=== PATIENT | male | born 1955 | race Caucasian/White ===

== ENCOUNTER → 2023-06-25 06:22 | Day surgery (SDC) | payer MEDICARE, OTHER, SELFPAY | LOC: GI 06:22 | PROVIDERS: ATTENDING PHYSICIAN Internal Medicine; FAMILY PHYSICIAN Family Medicine | DX: K22.70 Barrett's esophagus without dysplasia (principal); K22.2 Esophageal obstruction; K31.89 Other diseases of stomach and duodenum; K29.70 Gastritis, unspecified, without bleeding | CPT/HCPCS: 43239; 88305 ==

== ENCOUNTER → 2023-08-01 10:08 | Outpatient (REF) | payer MEDICARE, OTHER, SELFPAY | LOC: RAD 10:08 | PROVIDERS: ATTENDING PHYSICIAN Surgery Vascular Surgery; FAMILY PHYSICIAN Family Medicine | DX: I73.9 Peripheral vascular disease, unspecified (principal); I77.1 Stricture of artery | CPT/HCPCS: 93922; 93923; 93925; 93930; 93978 ==

== ENCOUNTER 2023-10-18 06:11 | Day surgery (SDC) | payer MEDICARE, OTHER, SELFPAY ==
[2023-10-18] VITALS (9 sets, daily range): BP systolic 115–133; BP diastolic 59–98; BMI 24.2
== END 2023-10-18 16:13 | disposition home or self-care (01) ==
LOC: SDS 06:11
PROVIDERS: ATTENDING PHYSICIAN Internal Medicine Gastroenterology
DX: Z46.59 Encounter for fitting and adjustment of other gastrointestinal appliance and device (principal); Z97.8 Presence of other specified devices; Z79.01 Long term (current) use of anticoagulants
CPT/HCPCS: 43247

== ENCOUNTER → 2023-11-08 17:30 | Day surgery (SDC) | payer MEDICARE, OTHER, SELFPAY ==
[2023-11-08 14:13] VITALS: BP 135/91
--- NOTE | 2023-11-08 15:28 | ED.GENMED ---
History of Present Illness
General
Chief Complaint: Swallowing Problem
Source: patient
Exam Limitations: none
Time Seen by Provider: 11/08/23 15:08
Nursing documentation reviewed up to this point in time: agreed with
History of Present Illness
History of Present Illness:
The patient is a 68-year-old man with a past medical history of Palacios's esophagus with dysplasia who recently underwent esophageal surgery at [facility] this year. Patient reports that he had a stent postoperatively. The stent was removed
by Dr. Stephens on October 18, 2023. Patient reports that 3 days after the stent was removed, he had great difficulty swallowing liquids and solids. He reports that he has continued to lose weight and is bringing up large amounts of mucus after he eats and
drinks anything. Patient denies pain and bleeding. Patient was told to come to the emergency department for possible EGD.
Past History
Past History
ED Past Medical History: COPD, GERD (Palacios's esophagus), HTN, Hypercholesterolemia and Other (Peripheral vascular disease, lumbar disc disease, fibromyalgia)
ED Past Surgical History: Orthopedic (Lumbar laminectomy, spinal stenosis surgery 08/13/2017.) and Tonsilectomy
Social History
Tobacco: Former smoker (Quit smoking June 2017)
Alcohol: Occasional
Drug: None
Personal:
Living: with family
Employment: Employed
Family History
Family History: Other (Noncontributory)
Review of Systems
Review of Systems
Allergies reviewed?: Yes
All Other Systems: ROS reviewed and negative except as documented in HPI and ROS
Constitutional: Reports weight loss
EENT: Reports other (Large amount of mucus production, difficulty swallowing)
Respiratory: Reports no symptoms
Cardiac: Reports no symptoms
ABD/GI: Reports vomiting
: Reports no symptoms
Musculoskeletal: Reports no symptoms
Skin: Reports no symptoms
Neurological: Reports no symptoms
Endocrine: Reports no symptoms
Hematologic/Lymphatic: Reports no symptoms
Psychiatric: Reports no symptoms
Phy Exam
Physical Exam
Physical Exam:
Physical Exam
General: no apparent distress, not acutely ill. Comfortable appearing. No pooling of saliva
Neck: supple. no meningeal signs. normal psoterior pharynx
Heart: s1/s2 regular rate and rhythm, no murmur. equal radial pulses.
Lungs: no acute respiratory distress. clear bilaterally
Abdomen: normal bowel sounds. not tender. no CVAT
Neuro: alert and oriented. no focal neurological deficits
Skin: no rash
Psychiatric: well kept. interactive and cooperative
Extremities: no edema. no calf tenderness. negative homans. good distal pulses
Course
Orders/Labs/Results
Orders:
Orders
11/08/23 15:26
0.9% Sodium Chloride 1000 ml [Nss] 1,000 ml IV BOLUS
11/08/23 15:36
Basic Metabolic Panel Urgent
Complete Blood Count/With Diff Urgent
11/08/23 15:56
Consult Gastroenterology [GASTROINTESTINAL CONSULT] Urgent
Consulting Provider: Saud Jauregui
Was physician already notified: Yes
Reason for consult: difficulty swallowing
11/08/23 17:25
Glycopyrrolate [Robinul] 0.2 mg .ROUTE .STK-MED ONE
Lidocaine HCl/Epinephrine Mpf [Xylocaine Mpf 2% with Epinephrine] 2 % .ROUTE .STK-MED ONE
Propofol [Diprivan] 40 ml .ROUTE .STK-MED
Abnormal Lab Results
11/08/23
15:36
RBC 4.17 L 10^6/uL
(4.70-6.10)
Hct 37.5 L %
(39.0-52.0)
MCH 32.9 H pg
(27.0-31.0)
Monocytes % 10.7 H %
(1.7-9.3)
Sodium 131 L mmol/L
(135-145)
Chloride 97 L mmol/L
(98-107)
BUN 25 H mg/dl
(9-20)
Glucose 100 H mg/dl
(70-99)
11/08/23 15:36
11/08/23 15:36
Vital Signs
Initial and Last Documented VS:
Initial Vital Signs
Temp Pulse Resp BP Pulse Ox
98.6 F 86 18 135/91 97
11/08/23 14:13 11/08/23 14:13 11/08/23 14:13 11/08/23 14:13 11/08/23 14:13
Last Documented Vital Signs
Temp Pulse Resp BP Pulse Ox
98.6 F 86 18 135/91 97
11/08/23 14:13 11/08/23 14:13 11/08/23 14:13 11/08/23 14:13 11/08/23 14:13
MDM/Problems Addressed
Differential Diagnosis Includes:
Esophageal obstruction, gastric outlet syndrome, small bowel obstruction
MDM/Problems Addressed:
Patient presents with acute on chronic difficulty swallowing
Chronic conditions affecting care:
Palacios's esophagus
Acute Exacerbation and/or Progression of Chronic Illness:
Patient's symptoms likely represent acute exacerbation of chronic difficulty swallowing due to Palacios's esophagus and esophageal surgery
*Critical Care Note
Total Time (30-74mins, 75-104mins- exclusive of procedures): Not Applicable
Data Reviewed
Review of Other/Old Records Reveals: Operative Reports (Dr. Stephens's operative procedure reviewed when he remove stent on October 18, 2023)
Source: patient and spouse
Patient Management
Discussion with other providers: Other (Dr. Saud Jauregui came to evaluate patient and is taking him to the GI lab.)
Update Note
Update Note:
4:[address] Jauregui is taking patient to the GI lab for an EGD.
ED Attending Note
-
Portions of this chart may have been created with voice recognition software.� Occasional wrong word or��sound alike� substitutions may have occurred due to the inherent limitations of voice recognition software.
Discharge Plan
Departure
Patient Disposition: GI LAB
Date of Disposition: 11/08/23
Time of Disposition: 16:13
Admit to: GI lab
Presentation/result/management discussed w/ accepting MD/DO: Saud Jauregui
Patient with high blood pressure during this ER visit?: Yes
Condition: Good
Covid-19: Not Applicable
Discharge Problem:
acute on chronic dysphagia
Interventions
Interventions:
*Risk Screen - Suicide Last Done: 11/08/23 15:29
*General Assessment Last Done: 11/08/23 14:13
*Neglect/Abuse Screening Last Done: 11/08/23 15:29
ED- Fall Risk Assessment Last Done: 11/08/23 15:29
*ED COVID-19 Vaccine History Last Done: 11/08/23 14:13
*Nursing Disposition Last Done: 11/08/23 17:24
ED-EENT Assessment Last Done: 11/08/23 15:29
SJ-Esvbag-Pnhjcgrhvm Assessment Last Done: 11/08/23 15:29
ED- Pulmonary Assessment Last Done: 11/08/23 15:29
ED- Neurological Assessment Last Done: 11/08/23 15:29
Discharge Date and Time
Discharge Date/Time: 11/08/23 17:25
[2023-11-08 15:29] VITALS: BMI 22.6
[2023-11-08] MEDS: NSS 1000 IV (15:32)
--- NOTE | 2023-11-08 15:33 | CON.GI ---
Addendum entered and electronically signed by Saud Jauregui MD 11/08/23 16:57:
I saw and examined the patient.
The BACTERIOLOGY TEACHER or PA's note was reviewed and I agree with the note.
Comment: 68yo male presents with dysphagia. He has hx long standing Sifuentes's and on surveillance EGD in June found to have HGD, LGD, and possible intramucosal CA. Referred for ESD at [facility] which was performed in August with negative
margins, path showing HGD, LGD. Esophageal stent was placed due to perforation during procedure. He had stent removal 10/17 and was able to eat OK following procedure. Two days later he ate cheesesteak and had aspiration, regurgitation. Since
then he has intermittently had difficulty eating or even swallowing water, but other times able to eat full breakfast sandwich this AM. He is on xarelto for PVD
REC:
Unclear if he has esophageal obstruction. He drank water in ER but then regurgitated up phlegm and water 1 minute later
Will proceed with EGD (diagnostic only on xarelto) to exclude food impaction
He may have esophageal stricture. If he needs dilation, will reschedule after xarelto washout (can be done OP)
If no obstruction, can d/c on soft diet and continue PPI/carafate
Original Note:
Consultation
-
Date/Time Consultation Requested: 11/08/231529
Date/Time Consultation Performed: 11/08/231529
Requesting Provider: Maisha Lugo MD
Performing Provider: WESLEY Ayala, Saud Jauregui MD
Reason for Consultation: difficulty swallowing
Medical History
Chief Complaint / HPI
Chief Complaint: inability to eat
History of Present Illness:
Pt is a 68yo with hx GERD, colon polyps, sifuentes's, PVD, DDD, fibromyalgia with EGD 06/2023 with change of short segment sifuentes's with EGD 06/[address] Stapleton --benign appearing stenosis and gastritis pathology GE junction with low grade
dysplasia, and high grade dysplasia with rare single and small dysplastic cell suspicious for intramucosal adenocarcinoma in background of sifuentes's. Pt went to Dr. Watt with [facility] for repeat EGD in July with ESD resection and perforation
requiring stenting (report not reviewed) with path high grade dysplasia in background of sifuentes's mucosa and esophageal and gastric margins free of dysplasia. Pt went 10/17 for stent removal with Dr. Stephens-- sent found middle and lower third of
esophagus with multiple endosutures found and cut. stent removed with raptor device no lesions in esophagus. Pt states he was well for a few dayt then went out to eat for cheesesteak. He has feeling of food hitting stomach with regurgitation of
mostly mucous. Since that time he has had episodes of normal eating and other episode of regurgitation of mostly phlegm about 1-2 minutes after eating. Symptoms were severe a few days ago with dark urine without eating with worsening symptoms over
time. He has been on Lansoprazole and added Carafate after symptoms without improvement.
He denies odynophagia, abdominal pain, change in bowel habits or bleeding. 30 lbs wt loss since July. PET neg 07/2023.
Past Medical History
Past Medical History: GERD, HTN and Other (PVD, sifuentes's, colon polyps, DDD, fibromyalgia)
Past Surgical History: Tonsilectomy and Other (lumbar lami, spinal stenosis)
Social History
Tobacco: Former Smoker
Alcohol: Occasional
Drug: None
Personal:
Living: With Family
Employment: Retired
Family History
Family History: Other (grandfather with bleeding ulcer )
Allergies / Home Medications
Allergy/AdvReac Type Severity Reaction Status Date / Time
oxycodone [From OxyContin] Allergy Severe Hives Verified 11/08/23 14:23
almond Allergy Pt denies Verified 11/08/23 14:23
banana Allergy Pt denies Verified 11/08/23 14:23
barley Allergy Pt denies Verified 11/08/23 14:23
candesartan [From Atacand] Allergy Anaphylaxis Verified 11/08/23 14:23
hydromorphone Allergy HALLUCINATI Verified 11/08/23 14:23
ONS
metoprolol Allergy Anaphylaxis Verified 11/08/23 14:23
rabeprazole [From Aciphex] Allergy Anaphylaxis Verified 11/08/23 14:23
valsartan [From Diovan] Allergy Anaphylaxis Verified 11/08/23 14:23
H1N1 vaccine Allergy Anaphylaxis Uncoded 11/08/23 14:23
�Medication �Instructions �Recorded
clonidine HCl 0.1 mg tablet 0.1 mg PO DAILY 08/09/17
zinc 10 mg tablet 10 mg PO DAILY ##0 08/09/17
acetaminophen 500 mg tablet 1,000 mg PO BID 11/05/17
(Tylenol Extra Strength)
hydrochlorothiazide 12.5 mg tablet 12.5 mg PO DAILY 11/05/17
lansoprazole 15 mg capsule,delayed 15 mg PO DAILY 11/05/17
release
multivitamin with folic acid 400 1 tab PO DAILY 11/05/17
mcg tablet (Tab-A-Trung)
red yeast rice 600 mg tablet 600 mg PO DAILY ##0 11/05/17
Lactobacillus acidophilus and 1 tab PO DAILY 12/06/20
rhamnosus 15 billion cell capsule
(Probiotic)
docosahexaenoic acid (dha)-epa 120 1 cap PO DAILY 12/06/20
mg-180 mg capsule
rivaroxaban 15 mg tablet (Xarelto) 15 mg PO DAILY 12/06/20
Review of Systems
-
History Source: Patient and Family
Constitutional: Reports Weight Loss
EENT: Reports No Symptoms
Respiratory: Reports No Symptoms
Cardiac: Reports No Symptoms
Abdomen/GI: Reports Nausea and Vomiting (after eating with regurgitation of phlem)
: Reports Dark Urine (several days ago with inability to eat )
Musculoskeletal: Reports No Symptoms
Skin: Reports No Symptoms
Neurological: Reports Weakness
Endocrine: Reports No Symptoms
Hematologic/Lymphatic: Reports No Symptoms
Vital Signs
Temp Pulse Resp BP Pulse Ox
98.6 F 86 18 135/91 97
11/08/23 14:13 11/08/23 14:13 11/08/23 14:13 11/08/23 14:13 11/08/23 14:13
Physical Exam
Exam
General: Well Nourished and Other (thin appearing)
HEENT: Normocephalic and Anicteric
Respiratory: Clear
Cardiac: Regular Rhythm
GI: Soft, Non Tender and Non Distended
Musculoskeletal: No Clubbing and No Cyanosis
Skin: Warm and Dry
Neuro: Awake, Alert and AO x 3
Psych: Calm
Results
Diagnostic Image Results:
07/2023 PET scan
No suspicious FDG avid lesion.
Chronic degenerative changes of the spine. Previous lumbar laminectomies.
Prior GI Procedures:
EGD 06/[address] Stapleton --benign appearing stenosis and gastritis pathology GE junction with low grade dysplasia, and high grade dysplasia with rare single and small dysplastic cell suspicious for intramucosal adenocarcinoma in background of
sifuentes's.
07/2023 Dr. Watt with [facility] for repeat EGD in July with ESD resection and perforation requiring stenting (report not reviewed) with path high grade dysplasia in background of sifuentes's mucosa and esophageal and gastric margins free of dysplasia
EGD: Dr. Stephens 10/18/23
- Pre-existing esophageal stent secured with
endoscopically placed sutures, removed.
- No gross lesions in the entire stomach.
- Normal duodenal bulb, first portion of the duodenum
and second portion of the duodenum
Assessment / Plan
-
Pt is a 68yo with hx GERD, colon polyps, sifuentes's, PVD, DDD, fibromyalgia with EGD 06/2023 with change of short segment sifuentes's with EGD 06/[address] Stapleton --benign appearing stenosis and gastritis pathology GE junction with low grade
dysplasia, and high grade dysplasia with rare single and small dysplastic cell suspicious for intramucosal adenocarcinoma in background of sifuentes's. Pt went to Dr. Watt with [facility] for repeat EGD in July with ESD resection and perforation
requiring stenting (report not reviewed) with path high grade dysplasia in background of sifuentes's mucosa and esophageal and gastric margins free of dysplasia. Pt went 10/17 for stent removal with Dr. Stephens-- sent found middle and lower third of
esophagus with multiple endosutures found and cut. stent removed with raptor device no lesions in esophagus. Pt states he was well for a few dayt then went out to eat for cheesesteak. He has feeling of food hitting stomach with regurgitation of
mostly mucous. Since that time he has had episodes of normal eating and other episode of regurgitation of mostly phlegm about 1-2 minutes after eating. Symptoms were severe a few days ago with dark urine without eating with worsening symptoms over
time. He has been on Lansoprazole and added carafate after symptoms without improvement. PET neg 07/2023.
-dysphagia with regurgitation of phlegm after eating and drinking
-hx sifuentes's with EGD 06/2023 high grade dysplasia/intramucosal adeno Ca with ESD 07/[address] Watt with perforation and stent placement
-10/18/23 endostent removal
-hx GERD
-hyponatremia
-wt loss
other medical problems:
-colon polyps
-PVD
-fibromyalgia
PLAN:
etiology of dysphagia related to retained food impaction, stricture, spasms vs other
unable to tolerate liquids in ER
cont IVF
cont NPO
plan for EGD today to rule out food impaction vs other today
Last Xarelto this am
family updated at bedside
-
-
Thank you for consultation and allowing me to participate in the patient's care. Please call the psychological operations specialist GI physician during the after hours with any questions or concerns.
[2023-11-08 15:50] LABS: % Basophils 1.4 % (0-2); % Eosinophils 2.6 % (0-6); % Immature Granulocytes 0.4 % (0-0.5); % Lymphocytes 37.8 % (20.5-51.1); % Monocytes 10.7 % (1.7-9.3); % Neutrophils 47.1 % (42.2-75.2); Absolute Basophils 0.1 10^3/uL (0-0.2); Absolute Eosinophils 0.2 10^3/uL (0-0.7); Absolute Lymphocytes 2.2 10^3/uL (1.2-3.4); Absolute Monocytes 0.6 10^3/uL (0.1-0.6); Absolute Neutrophils 2.7 10^3/uL (1.4-6.5); Hematocrit 37.5 % (39.0-52.0); Hemoglobin 13.7 g/dL (13.0-18.0); Mean Corp Hgb Conc. 36.5 g/dL (33.0-37.0); Mean Corpuscular Hgb 32.9 pg (27.0-31.0); Mean Corpuscular Volume 89.9 fL (80.0-94.0); Mean Platelet Volume 9.6 fL (7.4-10.4); Nucleated Red Blood Cells % 0 % (-); Platelet Count 224 10^3/uL (130-400); Red Blood Cell Count 4.17 10^6/uL (4.70-6.10); Red Cell Dist. Width 12.9 % (11.5-14.5); White Blood Cell Count 5.7 10^3/uL (4.8-10.8)
[2023-11-08 16:10] LABS: Blood Urea Nitrogen 25 mg/dl (9-20); Calcium 9.6 mg/dl (8.4-10.2); Carbon Dioxide 24 mmol/L (22-30); Chloride 97 mmol/L (98-107); Estimated Creatinine Clearance 72 ml/min; Glucose 100 mg/dl (70-99); Sodium 131 mmol/L (135-145); eGFR > 60.00
== END ==
LOC: EMR 14:09 → GI 17:30
PROVIDERS: ATTENDING PHYSICIAN Emergency Medicine; CONSULT PHYSICIAN Specialist; FAMILY PHYSICIAN Family Medicine
DX: R13.10 Dysphagia, unspecified (principal); K22.2 Esophageal obstruction; T18.128A Food in esophagus causing other injury, initial encounter; W44.F3XA Food entering into or through a natural orifice, initial encounter
CPT/HCPCS: 43247; 80048; 85025; 96360; 99284

== ENCOUNTER 2023-11-26 06:33 | Day surgery (SDC) | payer MEDICARE, OTHER, SELFPAY ==
[2023-11-26 13:59] VITALS: BMI 23.7
[2023-11-26 14:00] VITALS: BP 111/67; BMI 23.7
[2023-11-26 16:36] VITALS: BP 104/64
[2023-11-26 16:45] VITALS: BP 112/79
[2023-11-26 16:55] VITALS: BP 119/78
== END 2023-11-26 17:15 | disposition home or self-care (01) ==
LOC: SDS 06:33
PROVIDERS: ATTENDING PHYSICIAN Internal Medicine Gastroenterology
DX: R13.10 Dysphagia, unspecified (principal); K22.2 Esophageal obstruction
CPT/HCPCS: 43249; 43236; C1726

== ENCOUNTER 2023-12-17 06:18 | Day surgery (SDC) | payer MEDICARE, OTHER, SELFPAY ==
[2023-12-17 09:15] VITALS: BP 181/93
[2023-12-17 09:36] VITALS: BMI 24.1
[2023-12-17 09:37] VITALS: BMI 24.1
[2023-12-17 11:23] VITALS: BP 119/66
[2023-12-17 11:30] VITALS: BP 131/87
[2023-12-17 11:49] VITALS: BP 110/82
== END 2023-12-17 12:10 | disposition home or self-care (01) ==
LOC: SDS 06:18
PROVIDERS: ATTENDING PHYSICIAN Internal Medicine Gastroenterology
DX: K22.2 Esophageal obstruction (principal); R13.10 Dysphagia, unspecified; Z85.01 Personal history of malignant neoplasm of esophagus; Z79.01 Long term (current) use of anticoagulants
CPT/HCPCS: 43249; 43236; C1726

== ENCOUNTER 2024-01-03 06:24 | Day surgery (SDC) | payer MEDICARE, OTHER, SELFPAY ==
[2024-01-03 07:24] VITALS: BP 132/92
[2024-01-03 07:35] VITALS: BMI 22.9
[2024-01-03 08:36] VITALS: BP 131/97
[2024-01-03 08:38] VITALS: BP 109/67
[2024-01-03 08:45] VITALS: BP 108/74
[2024-01-03 09:00] VITALS: BP 126/82
[2024-01-03 09:15] VITALS: BP 126/67
== END 2024-01-03 09:25 | disposition home or self-care (01) ==
LOC: SDS 06:24
PROVIDERS: ATTENDING PHYSICIAN Internal Medicine Gastroenterology
DX: K22.2 Esophageal obstruction (principal); R13.10 Dysphagia, unspecified; Z85.01 Personal history of malignant neoplasm of esophagus
CPT/HCPCS: 43249; 43236; C1726

== ENCOUNTER 2024-02-13 06:16 | Day surgery (SDC) | payer MEDICARE, OTHER, SELFPAY ==
[2024-02-13 10:36] VITALS: BMI 23.7
[2024-02-13 10:37] VITALS: BMI 23.7
[2024-02-13 10:38] VITALS: BP 123/79
[2024-02-13 11:53] VITALS: BP 118/87
[2024-02-13 12:00] VITALS: BP 95/79
[2024-02-13 12:15] VITALS: BP 114/83
== END 2024-02-13 12:27 | disposition home or self-care (01) ==
LOC: SDS 06:16
PROVIDERS: ATTENDING PHYSICIAN Internal Medicine
DX: K22.2 Esophageal obstruction (principal); K20.90 Esophagitis, unspecified without bleeding; K22.10 Ulcer of esophagus without bleeding; Z79.01 Long term (current) use of anticoagulants
CPT/HCPCS: 43235

== ENCOUNTER 2024-03-09 06:31 | Day surgery (SDC) | payer MEDICARE, OTHER, SELFPAY ==
[2024-03-09 11:21] VITALS: BMI 23.8
[2024-03-09 11:32] VITALS: BMI 23.8
[2024-03-09 11:33] VITALS: BP 160/99
[2024-03-09 13:06] VITALS: BP 129/74
== END 2024-03-09 13:37 | disposition home or self-care (01) ==
LOC: SDS 06:31
PROVIDERS: ATTENDING PHYSICIAN Internal Medicine
PROC: 0D758ZZ Dilation of Esophagus, Via Natural or Artificial Opening Endoscopic (ICD-10-PCS; 2024-03-09)
PROC: 3E0G8GC Introduction of Other Therapeutic Substance into Upper GI, Via Natural or Artificial Opening Endoscopic (ICD-10-PCS; 2024-03-09)
DX: K22.2 Esophageal obstruction (principal); K44.9 Diaphragmatic hernia without obstruction or gangrene
CPT/HCPCS: 43249; 43236; C1726

== ENCOUNTER 2024-07-24 06:07 | Day surgery (SDC) | payer MEDICARE, OTHER, SELFPAY ==
[2024-07-24 09:10] VITALS: BMI 24.7
[2024-07-24 09:13] VITALS: BMI 24.7
[2024-07-24 09:14] VITALS: BP 143/97
[2024-07-24 12:17] VITALS: BP 132/89
[2024-07-24 12:30] VITALS: BP 133/84
[2024-07-24 12:45] VITALS: BP 124/74
== END 2024-07-24 13:15 | disposition home or self-care (01) ==
LOC: SDS 06:07
PROVIDERS: ATTENDING PHYSICIAN Internal Medicine
DX: Z12.11 Encounter for screening for malignant neoplasm of colon (principal); K63.89 Other specified diseases of intestine; R13.10 Dysphagia, unspecified; K44.9 Diaphragmatic hernia without obstruction or gangrene; K22.2 Esophageal obstruction; K29.70 Gastritis, unspecified, without bleeding; K22.89 Other specified disease of esophagus
CPT/HCPCS: 43249; 45380; 43239; 88305; 88342

== ENCOUNTER → 2024-08-05 09:39 | Outpatient (REF) | payer MEDICARE, OTHER, SELFPAY | LOC: DHVS 09:39 | PROVIDERS: ATTENDING PHYSICIAN Registered Nurse | DX: I73.9 Peripheral vascular disease, unspecified (principal); I77.1 Stricture of artery; I65.23 Occlusion and stenosis of bilateral carotid arteries | CPT/HCPCS: 93922; 93923; 93925; 93930; 93978 ==

== ENCOUNTER 2025-03-04 12:32 | Outpatient (REF) | payer MEDICARE, OTHER, SELFPAY | END 2025-03-04 23:59 | disposition home or self-care (01) | LOC: WOUND 12:32 | PROVIDERS: ATTENDING PHYSICIAN Surgery; FAMILY PHYSICIAN Family Medicine | DX: I70.262 Atherosclerosis of native arteries of extremities with gangrene, left leg (principal); L97.524 Non-pressure chronic ulcer of other part of left foot with necrosis of bone; I70.0 Atherosclerosis of aorta | CPT/HCPCS: G0463; 99204 ==

== ENCOUNTER 2025-03-04 17:46 | Inpatient (IN) | payer MEDICARE, OTHER, SELFPAY ==
[2025-03-04 13:07] VITALS: BP 152/93
[2025-03-04 14:50] VITALS: BMI 23.9
--- NOTE | 2025-03-04 15:11 | ED.GENMED ---
History of Present Illness
General
Chief Complaint: Skin Problem
Source: patient and spouse
Exam Limitations: none
Time Seen by Provider: 03/04/25 14:59
History of Present Illness
History of Present Illness:
Patient noticed a wound to the left fourth toe which is his lateral toe on his left foot about a week ago. Progressively red swollen. No tenderness. History of peripheral neuropathy. History of peripheral arterial disease. Known history of
stent. No fever chills or systemic symptoms. Sent over by wound care.
Past History
Past History
ED Past Medical History: COPD, GERD (Palacios's esophagus), HTN, Hypercholesterolemia and Other (Peripheral vascular disease, lumbar disc disease, fibromyalgia)
ED Past Surgical History: Orthopedic (Lumbar laminectomy, spinal stenosis surgery 08/13/2017.), Tonsilectomy and Other (Peripheral vascular surgery)
Social History
Tobacco: Former smoker (Quit smoking June 2017)
Alcohol: Occasional
Drug: None
Personal:
Living: with family
Employment: Employed
Family History
Family History: Other (Noncontributory)
Review of Systems
Review of Systems
All Other Systems: Not applicable
Constitutional: Denies fever or chills
Phy Exam
Physical Exam
Physical Exam:
GENERAL: Alert and oriented in no apparent distress
EYE: Orbits normal.
CARDIAC: Regular rate and rhythm without any obvious murmurs.
LUNGS: Clear breath sounds,normal
ABDOMEN: Soft, without focal tenderness or distention
NEUROLOGICAL: Alert and oriented , grossly non-focal
SKIN: Warm and dry. Erythema warmth to the left lateral dorsal foot with an open wound to the left fourth toe. Clear drainage
MUSCULOSKELETAL: Edema to the left foot. Good color to the foot. No ischemic changes. Posterior tibial and dorsalis pedis pulses reasonable with Doppler
PSYCH: Normal and appropriate interaction.
Course
Orders/Labs/Results
Orders:
Orders
03/04/25 15:09
IV Insert/Care/Rem.- Treatment PRN
03/04/25 15:10
Piperacillin/Tazo 4.5 Gram [Zosyn] 4.5 gram in 100 ml IV NOW
Vancomycin [Vancocin] 2,000 mg 0.9% Sodium Chloride 500 ml [Nss] 500 ml IV NOW
Foot, Left 3 View [CR Foot - Left Min 3 Views] Urgent
Comment:
Reason For Exam: Wound/cellulitis fourth toe
03/04/25 15:20
Basic Metabolic Panel Urgent
Complete Blood Count/With Diff Urgent
Serum Osmolality Urgent
Comment: ADD ON
Blood Culture Q30M
LEXY Source: Blood/Venous
Specimen Description:
Blood Culture Q30M
LEXY Source: Blood/Venous
Specimen Description:
03/04/25 16:27
Add On- LAB Urgent
Tests Added?: serum osmo
Osmolality, Random Urine Urgent
Date Specimen was Collected: 03/04/25
Time Specimen was Collected: 17:15
Urine Sodium Urgent
Date Specimen was Collected: 03/04/25
Time Specimen was Collected: 17:15
03/04/25 17:14
Admit/Transfer Patient As Directed
Co-Sign Provider:
Level of Care: Inpatient admission
Assign to:: Medical/Surgical
Physician / Group: Marti Serrano
Diagnosis: Cellulitis left foot, PVD, osteomyelitis, hyponatremia
Reason for Hospitalization: Cellulitis left foot, PVD, osteomyelitis, hyponatremia
Expected length of stay greater than two midnights?: Yes
ELOS- Estimated Length of Stay in days: 3
I certify the patient meets the requirements for IP care: Yes
PRN Pain Medication Management As Directed
May give lesser potent ordered pain med per pt: Yes
preference::
Protocol:: Medication orders for pain may be administered in a
manner that supports deferring to patient preference
when the pt is:
- Requesting an ordered lesser potent pain medication.
Least to most potent pain medications are defined
as: acetaminophen < NSAID < tramadol < opioids
(morphine, oxycodone, hydromorphone).
- Requesting a lesser dose of the same medication IF
ORDERED.
- Requesting a less intrusive route of administration
if both routes are prescribed by the provider (PO <
IV).
03/04/25 17:17
Code Status As Directed
Resuscitation Status: Full Code
Abnormal Lab Results
03/04/25
15:20
RBC 3.65 L 10^6/uL
(4.70-6.10)
Hgb 11.4 L g/dL
(13.0-18.0)
Hct 32.8 L %
(39.0-52.0)
MCH 31.2 H pg
(27.0-31.0)
Absolute Monos (auto) 1.4 H 10^3/uL
(0.1-0.6)
Lymphocytes % 19.0 L %
(20.5-51.1)
Monocytes % 15.6 H %
(1.7-9.3)
Sodium 124 L mmol/L
(135-145)
Chloride 92 L mmol/L
(98-107)
Serum Osmolality 259 L mOsm/kg
(275-300)
03/04/25 15:20
03/04/25 15:20
Vital Signs
Initial and Last Documented VS:
Initial Vital Signs
Temp Pulse Resp BP Pulse Ox
98.4 F 77 16 152/93 98
03/04/25 13:07 03/04/25 13:07 03/04/25 13:07 03/04/25 13:07 03/04/25 13:07
Last Documented Vital Signs
Temp Pulse Resp BP Pulse Ox
98.4 F 69 18 123/90 99
03/04/25 13:07 03/04/25 18:40 03/04/25 18:40 03/04/25 18:40 03/04/25 18:40
MDM/Problems Addressed
Differential Diagnosis Includes:
Cellulitis left lateral foot. History of peripheral arterial disease. Warrants admission IV antibiotics. Clinically not septic. Will check a foot x-ray doubt osteomyelitis. Cover for MRSA MSSA and gram-negative's.
*Pulse Oximetry
SaO2: 98
Oxygen Mode of Delivery: Room air
Patient hypoxic: no (98)
*Critical Care Note
Total Time (30-74mins, 75-104mins- exclusive of procedures): Not Applicable
Data Reviewed
Review of Other/Old Records Reveals: Labs, Records and Testing
Update Note
Update Note:
Admitted for wound/cellulitis/chronic osteomyelitis/hyponatremia.
ED Attending Note
-
Portions of this chart may have been created with voice recognition software.� Occasional wrong word or��sound alike� substitutions may have occurred due to the inherent limitations of voice recognition software.
Discharge Plan
Departure
Patient Disposition: Admit
Date of Disposition: 03/04/25
Time of Disposition: 15:59
Presentation/result/management discussed w/ accepting MD/DO: Hospitalist
Discharge Problem:
Cellulitis left foot, Open wound left fourth toe, Possible chronic osteomyelitis left four, Hyponatremia, History of peripheral arterial disease
Interventions
Interventions:
*Risk Screen - Suicide Last Done: 03/04/25 13:07
*General Assessment Last Done: 03/04/25 13:07
*Neglect/Abuse Screening Last Done: 03/04/25 15:08
*ED- Fall Risk Assessment Last Done: 03/04/25 13:07
*ED COVID-19 Vaccine History Last Done: 03/04/25 13:07
*ED Influenza Vaccine History Last Done: 03/04/25 13:07
ED-Skin Assessment Last Done: 03/04/25 14:50
[2025-03-04] MEDS: ZOSYN 100 IV ×2 (15:38→21:35)
[2025-03-04 15:41] LABS: Hematocrit 32.8 % (39.0-52.0); Hemoglobin 11.4 g/dL (13.0-18.0); Mean Corp Hgb Conc. 34.8 g/dL (33.0-37.0); Mean Corpuscular Volume 89.9 fL (80.0-94.0); Nucleated Red Blood Cells % 0 % (-); Platelet Count 310 10^3/uL (130-400); Red Cell Dist. Width 13.3 % (11.5-14.5)
[2025-03-04 15:54] LABS: Blood Urea Nitrogen 9 mg/dl (9-20); Calcium 9.2 mg/dl (8.4-10.2); Carbon Dioxide 22 mmol/L (22-30); Chloride 92 mmol/L (98-107); Estimated Creatinine Clearance 105 ml/min; Glucose 98 mg/dl (70-99); Potassium 4.3 mmol/L (3.5-5.1); Sodium 124 mmol/L (135-145); eGFR > 60.00
--- NOTE | 2025-03-04 16:13 | HPS.HSE ---
Addendum entered and electronically signed by Marti Serrano MD 03/04/25 17:52:
This is an addendum to the H&P written by Tierra Belle on 03/04/2025. �Patient seen and examined independently with [employer].
69-year-old male past medical history of hypertension, hyperlipidemia, peripheral arterial disease status post bilateral bypass on Xarelto, amputation of left fifth toe, COPD, GERD, presenting after he rubbed his left toe on sneakers after working
last week. �Noticed redness and edema 5 days ago and progressively worsening. �Sent in by wound care.
Drinks 4-6 beers a day.
Vital signs unremarkable.
Labs show sodium of 124.
Foot x-ray shows no acute fracture or dislocation. �Transmetatarsal amputation of the fifth digit of the remonstrated with intact resection margins. �There is chronic appearing erosion along the lateral aspect of the fourth digit middle phalanx new
from 2018 and suggestive of chronic osteomyelitis.
Patient with infected wound of left fourth toe with surrounding cellulitis and concern for underlying chronic osteomyelitis. Possibly related to PAD. Vancomycin/Zosyn, podiatry consulted. �Hold Xarelto. Vascular consulted.�
Hyponatremia secondary to significant alcohol use. �Alcohol withdrawal protocol.
Original Note:
Family Physician
-
Family Physician: NOT KNOW UNKNOWN - PT DOES
Chief Complaint
-
left 4th toe wound
History of Present Illness
Patient is a 69-year-old male with past medical history significant for hypertension, hyperlipidemia, peripheral vascular disease, COPD and GERD who presented to [facility] ED for evaluation of left 4th toe wound. Patient reports that last Saturday
02/26/2025 he rubbed left 4th digit raw while working with sneakers on. He noticed that area was reddened with mild edema and small opening on Saturday night. Area has progressively gotten worse since then, he called made appointment with
Jazmyn who directed him to ED for evaluation and treatment after seeing him this afternoon. He does report some increased chills over the past 2 days. Denies any fever, cough, shortness of breath, chest pain, nausea, vomiting or diarrhea.
Medical History
Past Medical History
Past Medical History: Reports Other
Additional Past Medical History:
hypertension
hyperlipidemia
peripheral vascular disease
COPD
GERD
Past Surgical History: Reports Other
Additional Past Surgical History:
Lumbar decompressive laminectomy L2, L3, L4, L5, S1 (Dr. Stephens) 08/13/2017
bilat fem endart,aorto bifem bypass,bilateral fm to bk pop artery with graft (Dr. Alvarenga) 10/07/2017
left fifth toe open ray amputation (Dr. Hinton) 11/07/2017
Open left inguinal hernia repair with mesh (Dr. Brady) 12/21/2020
Stent removed 09/2023
Social History
Tobacco: Vaping (daily 5% nicotine, former cigarette smoke quit 2017)
Alcohol: Daily (4-6 beers daily and 1 glass of wine )
Drug: None
Personal:
Living: With Family
Family History
Family History: Not pertinent
Allergies / Home Medications
Allergies reflects when Allergies were last updated in [facility].
Home Medications with original date entered in [facility]
Allergy/Medication List:
Allergies
Allergy/AdvReac Type Severity Reaction Status Date / Time
candesartan (From Atacand) Allergy Anaphylaxis Verified 03/04/25 13:10
hydromorphone Allergy HALLUCINATI Verified 03/04/25 13:10
ONS
metoprolol Allergy Anaphylaxis Verified 03/04/25 13:10
rabeprazole (From Aciphex) Allergy Anaphylaxis Verified 03/04/25 13:10
valsartan (From Diovan) Allergy Anaphylaxis Verified 03/04/25 13:10
H1N1 vaccine Allergy Anaphylaxis Uncoded 03/04/25 13:10
Home Medications
clonidine HCl 0.1 mg tablet 0.1 mg PO BID 08/09/17
lansoprazole 15 mg capsule,delayed release 15 mg PO DAILY 11/05/17
red yeast rice 600 mg tablet 600 mg PO DAILY ##0 11/05/17
Lactobacillus acidophilus and rhamnosus 15 billion cell capsule (Probiotic) 1 tab PO DAILY 12/06/20
rivaroxaban 15 mg tablet (Xarelto) 15 mg PO DAILY 12/06/20
ascorbic acid (vitamin C) 1,000 mg tablet (Vitamin C) 1,000 mg PO DAILY 03/09/24
acetaminophen 650 mg tablet,extended release 1,300 mg PO BID 03/04/25
hydrochlorothiazide 25 mg tablet 25 mg PO DAILY 03/04/25
pyridoxine (vitamin B6) 100 mg tablet (Vitamin B-6) 100 mg PO DAILY 03/04/25
vitamin E 268 mg (400 unit) capsule 268 mg PO DAILY 03/04/25
zinc acetate 25 mg (zinc) capsule 25 mg PO DAILY 03/04/25
Review of Systems
-
History Source: Patient
Constitutional: Reports Chills; Denies Fever
EENT: Denies Sore Throat
Respiratory: Denies Cough, Hemoptysis or Trouble Breathing
Cardiac: Denies Chest Pain, Diaphoresis, Palpitations or Syncope
Abdomen/GI: Denies Abdominal Pain, Nausea, Vomiting or Diarrhea
: Denies Dysuria, Frequency or Urgency
Musculoskeletal: Denies Joint Pain
Skin: Reports Other (open wound to left fourth toe wound ); Denies Rash
Neurological: Denies Dizzy
Physical Exam
Vital Signs
Vital Signs
Temp Pulse Resp BP Pulse Ox
98.4 F 77 16 152/93 98
03/04/25 13:07 03/04/25 13:07 03/04/25 13:07 03/04/25 13:07 03/04/25 15:14
Physical Exam
General: Well Developed, Well Nourished, No Apparent Distress, Comfortable and Conversant
HEENT: NormoCephalic, Moist mucous membranes, Nose Appears Normal and Ears Appear Normal
Respiratory: Clear and Non Labored Respirations; No Wheezes, Rales, Rhonchi or Crackles
Cardiac: S1/S2 and Regular Rhythm; No Murmur, Rub or Gallop
GI: Soft, Non Tender, Non Distended and Normal Bowel Sounds
Musculoskeletal: No Clubbing, No Cyanosis and No Edema
Skin: IV/Catheter Site and Other (left 4th toe wound with surrounding erythema and edema )
Neuro: Awake and AO x 3
Hematologic/Lymphatic: No Lymphadenopathy
Psych: Calm and Intact Judgment/Insight
Laboratory Results
-
03/04/25 15:20
03/04/25 15:20
Data Reviewed
-
Diagnostic Radiology: Report Reviewed by me (Lt Foot: No acute fracture or dislocation. Transmetatarsal amputation of the fifth digit redemonstrated with intact resection margins. There is a chronic appearing erosion along the lateral aspect of the
fourth digit middle phalanx, new from 2018 and suggestive of chronic osteomyelitis with acute co)
Lab Data: Labs Reviewed by me (hgb 11.4, hct 32.8, Na 124)
Impression/Plan
-
IMPRESSION/PLAN:
#left 4th toe wound with erythema and edema
#cellulitis
hgb 11.4, hct 32.8
Left foot: No acute fracture or dislocation. Transmetatarsal amputation of the fifth digit redemonstrated with intact resection margins. There is a chronic appearing erosion along the lateral
aspect of the fourth digit middle phalanx, new from 2018 and suggestive of chronic osteomyelitis with acute component not excluded radiographically.
Scattered mild to moderate osteoarthritic changes of the interphalangeal and first metatarsophalangeal joints. Mild plantar calcaneal enthesopathy. Tiny curvilinear radiopaque foreign
body projects along the plantar medial aspect of the great toe distally.
Blood Cx: pending
- Admit to med/surg
- IV Vanco and Zosyn
- Consult podiatry
- Consult Vascular
- supportive care
#hyponatremia
#alcohol dependency
Na 124
daily beer drinker 4-6 beers a day
- monitor BMP
- MSAS protocol
#peripheral vascular disease
- Hold Xarelto
#hypertension
- continue clonidine and HCTZ
#GERD
- continue lansoprazole
#hyperlipidemia
#COPD
Code status: full code
DVT prophylaxis: SCDs
[2025-03-04] MEDS: VANCOCIN 540 MG IV (17:15)
[2025-03-04 17:33] VITALS: BP 151/78
[2025-03-04 18:40] VITALS: BP 123/90
[2025-03-04 20:14] VITALS: BP 153/77; BMI 23.4
[2025-03-04] MEDS: THIAMINE INJECTION 200 MG IV (21:29)
[2025-03-04] MEDS: CATAPRES 0.1 MG PO (21:35)
--- NOTE | 2025-03-04 21:43 | PHA.VAN.IN ---
Assessment
- Assessment
Renal Function: Appears similar to baseline
AUC Dosing Plan
- Empiric Dosing
Initial / Loading Dose: 2000 mg @ 1715
Maintenance Regimen: 1000 mg IV Q12H
Estimated AUC (mcg*h/mL): 428
Estimated Peak (mcg*h/mL): 28.1
Estimated Trough (mcg/ml): 10.3
Estimated Half Life (H): 7.6
- Monitoring
No levels ordered at this time: level to be ordered upon follow-up
Pharmacokinetics Vancomycin I
- -
Patient Age: 69
Patient Sex: Male
Vancomycin Day #: 1
Indication: Skin And Soft Tissue
Requesting Provider: Anabella OLSON
Height / Weight:
Height 5 ft 11 in
Actual Weight 76.204 kg
- Vital Signs / Lab Results
Temp Pulse Resp BP Pulse Ox
97.8 F 78 16 127/82 98
03/04/25 20:14 03/04/25 21:35 03/04/25 20:14 03/04/25 21:35 03/04/25 20:14
Lab Results - Hematology
03/04/25
15:20
WBC 8.9
Lab Results - Chemistry
03/04/25
15:20
BUN 9
Creatinine 0.7
Estimated Creat Clear 105
[2025-03-04] MEDS: TYLENOL 650 MG PO (22:06)
[2025-03-04 22:27] LABS: INR 1.45; PT 18.2 Sec (11.4-14.6)
[2025-03-04 22:28] LABS: APTT 51.7 Sec (23.4-35.0)
[2025-03-04 22:39] LABS: GGTP 38 U/L (15-73); Magnesium 1.8 mg/dl (1.6-2.3)
[2025-03-04 23:00] VITALS: BP 137/69
[2025-03-05] MEDS: ZOSYN 100 IV ×4 (04:59→23:04)
[2025-03-05] MEDS: VANCOCIN 200 IV ×2 (06:04→18:32)
[2025-03-05 06:57] LABS: Hematocrit 33.2 % (39.0-52.0); Hemoglobin 11.1 g/dL (13.0-18.0); Mean Corp Hgb Conc. 33.4 g/dL (33.0-37.0); Mean Corpuscular Volume 92.5 fL (80.0-94.0); Platelet Count 295 10^3/uL (130-400); Red Cell Dist. Width 13.6 % (11.5-14.5)
[2025-03-05 07:11] LABS: Blood Urea Nitrogen 7 mg/dl (9-20); Calcium 9.1 mg/dl (8.4-10.2); Carbon Dioxide 25 mmol/L (22-30); Chloride 96 mmol/L (98-107); Estimated Creatinine Clearance 81 ml/min; Glucose 102 mg/dl (70-99); Potassium 4.2 mmol/L (3.5-5.1); Sodium 129 mmol/L (135-145); eGFR > 60.00
[2025-03-05 07:34] VITALS: BP 141/65
[2025-03-05] MEDS: FOLVITE 1 MG PO (08:38)
[2025-03-05] MEDS: THIAMINE INJECTION 200 MG IV ×2 (08:38→21:02)
[2025-03-05] MEDS: CATAPRES 0.1 MG PO ×2 (08:38→21:02)
--- NOTE | 2025-03-05 08:40 | PHA.VAN.FU ---
Vancomycin Assessment / Plan
- Assessment
Renal Function: Stable
WBC's are: WNL
In the past 24 hrs, patient has been: Afebrile
Concomitant Antimicrobials: piperacillin/tazobactam
- Dosing Plan
Continue: Vanc 1000mg Q12H
- Monitoring Plan
No level(s) ordered at this time: consider levels in next few days
- Follow Up
Pharmacy will continue to follow.
Vancomycin Follow UP
- -
Patient Age: 69
Patient Sex: Male
Vancomycin Day #: 2
Indication: Skin And Soft Tissue
Requesting Provider: Anabella OLSON
Pertinent Antimicrobial Allergies:
consider levels in next few days
Height / Weight:
Height 5 ft 11 in
Actual Weight 76.204 kg
- Vital Signs / Lab Results
Temp Pulse Resp BP Pulse Ox
98.7 F 61 17 141/65 97
03/05/25 07:34 03/05/25 07:34 03/05/25 07:34 03/05/25 07:34 03/05/25 07:34
Lab Results - Hematology
03/04/25 03/05/25
15:20 06:36
WBC 8.9 6.0
Lab Results - Chemistry
03/04/25 03/05/25
15:20 06:36
BUN 9 7 L
Creatinine 0.7 0.9
Estimated Creat Clear 105 81
[2025-03-05] MEDS: PROTONIX 20 MG PO (08:49)
[2025-03-05] MEDS: D5W 1000 IV (08:51)
--- NOTE | 2025-03-05 09:07 | CON.VAS ---
Addendum entered and electronically signed by Liang Shin III, MD 03/05/25 13:48:
This patient was seen and examined in collaboration with WESLEY Zhu. I agree with the history and physical exam as well as the assessment and plan. I have the following additions:
Well-known to Dr. Hinton
Prior aortobifemoral bypass with bilateral femoropopliteal bypasses
Admitted with left toe wound and associated infection
On physical examination he has a palpable DP pulse of the left foot
His foot is warm
I personally reviewed his vascular lab studies which reveal a normal NIK and TBI on the left and multiphasic continuous Doppler waveforms in the dorsalis pedis artery and posterior tibial artery.
I personally reviewed the CT angiogram which reveals widely patent aortobifemoral bypass along with patent bilateral lower extremity bypasses. Tibial runoff is patent.
Based on the results of his imaging along with his physical exam findings he is cleared for podiatric surgical intervention on his toe.
Call with additional questions or concerns.
Signed:
Liang Shin III, MD
Vascular Surgery
[facility]
Original Note:
Consultation
Consultation Request
Date/Time Consultation Performed: 03/05/25 8:30am
Performing Provider: Aleida
Reason for Consultation: Nonhealing toe wound/cellulitis
Medical History
-
Chief Complaint: Nonhealing toe wound/cellulitis
History of Present Illness:
69 yo male with PMH significant for hypertension, hyperlipidemia, peripheral vascular disease, COPD and GERD presented to our ER for left 4th toe wound. Pt states his shoes were ill fitting and causes the wound about 1 week ago. Over the weekend he
noted the toe becoming more reddened with a small opening. This has worsened since then so pt presented to the ER. Vascular consult for PAD evaluation.
Pt is well known to the vascular service. In [address] Alvarenga completed an aortobifem bypass with BL FEAs and BL fem-pop artery bypasses. Since that procedure the pt states he has 'been fine with good NIK/TBIs.' Pt seen at bedside this
am with Dr Shin. Toe is swollen and erythematous, no drainage noted. Palpable DP pulse. Podiatry at bedside, re-wrapped site.
Past Medical History
Past Medical History: Other (hypertension, hyperlipidemia, peripheral vascular disease, COPD, GERD)
Past Surgical History: Other (Lumbar decompressive laminectomy L2, L3, L4, L5, S1 (Dr. Stephens) 08/13/2017, left fifth toe open ray amputation (Dr. Hinton) 11/07/2017, Open left inguinal hernia repair with mesh (Dr. Brady) 12/21/2020)
Social History
Tobacco: Vaping
Alcohol: Daily
Personal:
Living: With Family
Allergies / Home Medications
Allergy/AdvReac Type Severity Reaction Status Date / Time
candesartan (From Atacand) Allergy Anaphylaxis Verified 03/04/25 13:10
hydromorphone Allergy HALLUCINATI Verified 03/04/25 13:10
ONS
metoprolol Allergy Anaphylaxis Verified 03/04/25 13:10
rabeprazole (From Aciphex) Allergy Anaphylaxis Verified 03/04/25 13:10
valsartan (From Diovan) Allergy Anaphylaxis Verified 03/04/25 13:10
H1N1 vaccine Allergy Anaphylaxis Uncoded 03/04/25 13:10
�Medication �Instructions �Recorded �Confirmed �Type
clonidine HCl 0.1 mg tablet 0.1 mg PO BID Heart 08/09/17 03/04/25 History
Disease/Condition
lansoprazole 15 mg capsule,delayed 15 mg PO DAILY gerd 11/05/17 03/04/25 History
release
red yeast rice 600 mg tablet 600 mg PO DAILY Supplement ##0 11/05/17 03/04/25 History
Lactobacillus acidophilus and 1 tab PO DAILY Supplement 12/06/20 03/04/25 History
rhamnosus 15 billion cell capsule
(Probiotic)
rivaroxaban 15 mg tablet (Xarelto) 15 mg PO DAILY Blood Clot 12/06/20 03/04/25 History
Prevention/Tx
ascorbic acid (vitamin C) 1,000 mg 1,000 mg PO DAILY Supplement 03/09/24 03/04/25 History
tablet (Vitamin C)
acetaminophen 650 mg 1,300 mg PO BID Pain 03/04/25 03/04/25 History
tablet,extended release
hydrochlorothiazide 25 mg tablet 25 mg PO DAILY Fluid 03/04/25 03/04/25 History
Retention/Swelling
pyridoxine (vitamin B6) 100 mg 100 mg PO DAILY Supplement 03/04/25 03/04/25 History
tablet (Vitamin B-6)
vitamin E 268 mg (400 unit) capsule 268 mg PO DAILY Supplement 03/04/25 03/04/25 History
zinc acetate 25 mg (zinc) capsule 25 mg PO DAILY Supplement 03/04/25 03/04/25 History
Review of Systems
-
History Source: Patient
All other systems: Negative unless noted
Constitutional: Reports Chills
EENT: Reports No Symptoms
Respiratory: Reports No Symptoms
Cardiac: Reports No Symptoms
Vascular: Denies Leg Pain / Claudication
Abdomen/GI: Reports No Symptoms
: Reports No Symptoms
Musculoskeletal: Reports No Symptoms
Skin: Reports Other (left 4th toe swelling/redness)
Neurological: Reports No Symptoms
Physical Exam
Vital Signs
Temp Pulse Resp BP Pulse Ox
98.7 F 61 17 141/65 97
03/05/25 07:34 03/05/25 07:34 03/05/25 07:34 03/05/25 07:34 03/05/25 07:34
Lab Results
03/05/25 06:36
03/05/25 06:36
Physical Exam
General: No Apparent Distress
HEENT: Normocephalic and Atraumatic
Respiratory: Non Labored Respirations
Cardiac: Negative JVD
GI: Soft and Non Tender
Musculoskeletal: No Clubbing, No Cyanosis and Edema (left 4th toe/slight through foot)
Skin: Warm and Other (small opening/superficial )
Neuro: Awake, Alert and Oriented
Psych: Calm
Pulses: Left Dorsalis Pedis: +2
Assessment / Plan
-
69 yo male here with left 4th toe erythema and swelling
PMH aortobifem bypass with BL FEAs and BL fem-pop bypasses
left 5th toe amp
Plan:
NIK/TBIs
CTA runoff to assess bypasses
local wound care
Seen and assessed with Dr Shin
Data Reviewed
-
Labs: Labs Reviewed by me
[2025-03-05] MEDS: TYLENOL 650 MG PO (09:19)
--- NOTE | 2025-03-05 09:38 | CM ---
Initial assessment completed. Patient is a 69-year-old male with past medical history significant for hypertension, hyperlipidemia, peripheral vascular disease, COPD and GERD who presented to [facility] ED for evaluation of left 4th toe wound.
Patient resides w/ spouse in a 2STH, 2 steps to enter from the outside. Patient is independent w/ ambulation, no device required. Independent w/ ADLs and personal care. Patient has grab bars in the shower, has commode and knee scooter that is not
being used at this time. No SNF hx. Home health in 2018. OP therapy hx for back.
Address, point of contact and insurance verified
PCP: Lc Kumar
Pharmacy: [facility]
CM consulted for substance abuse counseling. Discussed w/ spouse who stated there is no alcohol abuse from patient, spouse stated 'he just enjoys his light beers'. Spouse declined any support or needs regarding this.
Plan: Home, will watch for needs
--- NOTE | 2025-03-05 09:52 | W.PN.HOSP.TC ---
Today's Communication/Plan
-
see PN
Assessment / Plan
Assessment / Plan
69yo M with PMHx HTN, GERD, HLD, Hx of barrtes s/p Sx with prforation, HX of L 5th toe ambupatient 2/2 gangrene, Hx of TAVR, PAD s/p aorto-femoral bypass came with L 4th toe wound, found possible OM.
A/P:
#L 4th toe probably acute on chronic OM with cellulitis
XR with chronic osteomyelitis with acute component not excluded radiographically
Tiny curvilinear radiopaque foreign body projects along the plantar medial aspect of the great toe distally
Podiatry consult
ESR/CRP
VAnco/Zosyn
#Hyponatremia
UOsm 295, but on HCTZ - stop
patient reported polyuria
Nephro consult
Concern for overcorrection on 03/05/25 - d%W and follow BMP
thiamine/folate
check LFT
#PAD
CT runoff as per vasc Sx
hold Xarelto until final plans by podiatry
#Alcohol use, unclear if abuse
2-4 12Oz beer per day
no sign of withdrawl
counseling on cessation
#HLD
#GERD
#Esophageal stenosis s/p stent (now removed) and dilation
#essential HTN
cont home meds
DVT ppx hep
Full code
Patient was explained medical need to stay in the hospital. He verbalized understanding and currently presents with appropriate insight on his medical consition and with capacity to participate in medical decision making and discharge planning
Anticipated Discharge: > 48 hours
Subjective/Interval History
-
Date of Service: March 05, 2025
Objective Data
-
Labs:
Laboratory Results
03/04/25 03/05/25 03/05/25
21:57 06:36 09:16
WBC 6.0
Hgb 11.1 L
Hct 33.2 L
Plt Count 295
PT 18.2 H
INR 1.45
APTT 51.7 H
Sodium 129 L Pending
Potassium 4.2 Pending
Chloride 96 L Pending
Carbon Dioxide 25 Pending
BUN 7 L Pending
Creatinine 0.9 Pending
Glucose 102 H Pending
Calcium 9.1 Pending
Vital Signs:
Vital Signs
Temp Pulse Resp BP Pulse Ox
98.7 F 61 17 141/65 97
03/05/25 07:34 03/05/25 08:38 03/05/25 07:34 03/05/25 08:38 03/05/25 07:34
I&O
03/04/25 03/05/25 03/06/25
06:59 06:59 06:59
Intake Total 1440 / 1440
Balance 1440 / 1440
Review of Systems
-
History Source: Patient
All other systems: Reviewed and negative
Physical Exam
-
General: No Apparent Distress
HEENT: Normocephalic
Respiratory: Clear to Auscultation
Cardiac: Regular Rhythm
Neuro: Awake, Alert, Oriented and AO x 3
Psych: Calm
[2025-03-05 10:25] LABS: Blood Urea Nitrogen 8 mg/dl (9-20); Calcium 8.8 mg/dl (8.4-10.2); Carbon Dioxide 27 mmol/L (22-30); Chloride 94 mmol/L (98-107); Estimated Creatinine Clearance 81 ml/min; Glucose 85 mg/dl (70-99); Potassium 3.9 mmol/L (3.5-5.1); Sodium 129 mmol/L (135-145); eGFR > 60.00
--- NOTE | 2025-03-05 10:31 | W.PN.UPDATE ---
Update Note
Progress Note Update
69M presents with 4th toe wound that probes to bone, likely acute on chronic OM with cellulitis resolving on abx.
- will obtain MRI to eval for OM, to dictate plan
-- at this time patient is not amenable to 4th toe amputation
- would appreciate vascular recommendations
- conitnue IV abx
- LLE PWB to heel
- LWC rendered today betadine paint dsd
[2025-03-05 11:24] LABS: ALT (SGPT) 19 U/L (0-50); AST (SGOT) 26 U/L (17-59); Albumin 4.0 g/dl (3.5-5.0); Alkaline Phosphatase 57 U/L (38-126); Total Protein 6.9 g/dl (6.3-8.2)
[2025-03-05 11:27] LABS: C-Reactive Protein 76.50 mg/L (0.0-10.00)
--- NOTE | 2025-03-05 12:18 | W.CON.NEPH ---
Consultation
-
Date/Time Consultation Requested: March 05, 2025 10 AM
Date/Time Consultation Performed: March 05, 2025 11 PM
Requesting Provider: Bandar Martínez
Performing Provider: Dr. Sutherland
Reason for Consultation: Hyponatremia
Medical History
-
Chief Complaint: Hyponatremia
History of Present Illness:
69year-old male with past medical history significant for hypertension, hyperlipidemia, peripheral vascular disease, COPD and GERD who presented to [facility] ED for evaluation of left 4th toe wound. He was found to have a sodium of 124 at 4 PM with
repeat of 129.
Patient is on hydrochlorothiazide and drinks about 4+ beers a day. He does not take any acute or chronic NSAIDs.
Renal consult for hyponatremia
Past Medical History
significant for hypertension, hyperlipidemia, peripheral vascular disease, COPD and GERD
Social History
Tobacco: Non-Smoker
Alcohol: None
Allergies / Home Medications
Allergy/AdvReac Type Severity Reaction Status Date / Time
candesartan (From Atacand) Allergy Anaphylaxis Verified 03/04/25 13:10
hydromorphone Allergy HALLUCINATI Verified 03/04/25 13:10
ONS
metoprolol Allergy Anaphylaxis Verified 03/04/25 13:10
rabeprazole (From Aciphex) Allergy Anaphylaxis Verified 03/04/25 13:10
valsartan (From Diovan) Allergy Anaphylaxis Verified 03/04/25 13:10
H1N1 vaccine Allergy Anaphylaxis Uncoded 03/04/25 13:10
�Medication �Instructions �Recorded �Confirmed �Type
clonidine HCl 0.1 mg tablet 0.1 mg PO BID Heart 08/09/17 03/04/25 History
Disease/Condition
lansoprazole 15 mg capsule,delayed 15 mg PO DAILY gerd 11/05/17 03/04/25 History
release
red yeast rice 600 mg tablet 600 mg PO DAILY Supplement ##0 11/05/17 03/04/25 History
Lactobacillus acidophilus and 1 tab PO DAILY Supplement 12/06/20 03/04/25 History
rhamnosus 15 billion cell capsule
(Probiotic)
rivaroxaban 15 mg tablet (Xarelto) 15 mg PO DAILY Blood Clot 12/06/20 03/04/25 History
Prevention/Tx
ascorbic acid (vitamin C) 1,000 mg 1,000 mg PO DAILY Supplement 03/09/24 03/04/25 History
tablet (Vitamin C)
acetaminophen 650 mg 1,300 mg PO BID Pain 03/04/25 03/04/25 History
tablet,extended release
hydrochlorothiazide 25 mg tablet 25 mg PO DAILY Fluid 03/04/25 03/04/25 History
Retention/Swelling
pyridoxine (vitamin B6) 100 mg 100 mg PO DAILY Supplement 03/04/25 03/04/25 History
tablet (Vitamin B-6)
vitamin E 268 mg (400 unit) capsule 268 mg PO DAILY Supplement 03/04/25 03/04/25 History
zinc acetate 25 mg (zinc) capsule 25 mg PO DAILY Supplement 03/04/25 03/04/25 History
Review of Systems
-
No chest pain or shortness of breath no nausea or vomiting
Physical Exam
Vital Signs
Vital Signs
Temp Pulse Resp BP Pulse Ox
98.7 F 61 17 141/65 97
03/05/25 07:34 03/05/25 08:38 03/05/25 07:34 03/05/25 08:38 03/05/25 07:34
Lab Results
WBC 6.0 10^3/uL (4.8-10.8) 03/05/25 06:36
RBC 3.59 10^6/uL (4.70-6.10) L 03/05/25 06:36
Hgb 11.1 g/dL (13.0-18.0) L 03/05/25 06:36
Hct 33.2 % (39.0-52.0) L 03/05/25 06:36
Plt Count 295 10^3/uL (130-400) 03/05/25 06:36
Sodium 129 mmol/L (135-145) L 03/05/25 09:54
Potassium 3.9 mmol/L (3.5-5.1) 03/05/25 09:54
Chloride 94 mmol/L (98-107) L 03/05/25 09:54
Carbon Dioxide 27 mmol/L (22-30) 03/05/25 09:54
BUN 8 mg/dl (9-20) L 03/05/25 09:54
Creatinine 0.9 mg/dL (0.7-1.3) 03/05/25 09:54
eGFR > 60.00 03/05/25 09:54
Glucose 85 mg/dl (70-99) 03/05/25 09:54
Calcium 8.8 mg/dl (8.4-10.2) 03/05/25 09:54
Phosphorus 4.1 mg/dl (2.5-4.5) 03/04/25 21:57
Albumin 4.0 g/dl (3.5-5.0) 03/05/25 09:54
Physical Exam
General no acute distress
HEENT no cephalic atraumatic extraocular muscle intact no scleral icterus no JVD neck supple
lungs clear to auscultation bilateral
heart regular S1-S2 positive
abdomen soft nontender positive bowel sounds
extremities no edema pulses present bilateral
Neurologically nonfocal alert and oriented x 3
Skin no lesions no abrasions no petechiae
Psych normal affect no bizarre behavior
Data Reviewed
-
Radiology: Image Personally Visualized and interpreted
Labs: Labs Reviewed by me, Discussed with Physician, Discussed with Nurse and Discussed with Patient
Assessment/Plan
-
69year-old male with past medical history significant for hypertension, hyperlipidemia, peripheral vascular disease, COPD and GERD who presented to [facility] ED for evaluation of left 4th toe wound. He was found to have a sodium of 124 at 4 PM with
repeat of 129.
Patient is on hydrochlorothiazide and drinks about 4+ beers a day. He does not take any acute or chronic NSAIDs.
Renal consult for hyponatremia
Impression
Hyponatremia likely from decreased solute intake and alcohol use on HCTZ
Toe infection rule out osteo
Alcohol use
Hypertension
Plan.
Fluid restrict
500 cc D5W given
Sodium 129
Discontinue hydrochlorothiazide and will discontinue indefinitely with the alcohol
IV antibiotic
Discussed with hospitalist
[2025-03-05] MEDS: VISBIOME 1 CAP PO (13:20)
[2025-03-05 15:33] VITALS: BP 132/58
[2025-03-05] MEDS: HEPARIN 5000 UNITS SC ×2 (17:10→23:04)
[2025-03-05 18:31] LABS: AFP Male/Tumor Marker 2.27 ng/ml
[2025-03-05 21:00] VITALS: BP 144/77
[2025-03-05 21:21] LABS: Urine Character Clear (Clear)
[2025-03-05 21:30] LABS: Urine Red Blood Cell 0-2 /HPF (0-2); Urine Squamous Cell 0-2 /LPF (Few); Urine White Cell 0-2 /HPF (0-5)
[2025-03-05 23:00] VITALS: BP 130/68
[2025-03-06] MEDS: ZOSYN 100 IV ×4 (04:32→22:33)
[2025-03-06] MEDS: TYLENOL 650 MG PO ×2 (04:38→16:27)
[2025-03-06] MEDS: VANCOCIN 200 IV ×2 (06:15→18:05)
[2025-03-06 07:16] LABS: Hematocrit 31.3 % (39.0-52.0); Hemoglobin 10.6 g/dL (13.0-18.0); Mean Corp Hgb Conc. 33.9 g/dL (33.0-37.0); Mean Corpuscular Volume 90.2 fL (80.0-94.0); Nucleated Red Blood Cells % 0 % (-); Platelet Count 305 10^3/uL (130-400); Red Cell Dist. Width 13.8 % (11.5-14.5)
[2025-03-06 07:46] VITALS: BP 125/67
[2025-03-06 07:55] LABS: ALT (SGPT) 18 U/L (0-50); AST (SGOT) 25 U/L (17-59); Albumin 3.7 g/dl (3.5-5.0); Alkaline Phosphatase 57 U/L (38-126); Blood Urea Nitrogen 8 mg/dl (9-20); Calcium 8.9 mg/dl (8.4-10.2); Carbon Dioxide 24 mmol/L (22-30); Chloride 97 mmol/L (98-107); Estimated Creatinine Clearance 81 ml/min; Glucose 103 mg/dl (70-99); Potassium 4.1 mmol/L (3.5-5.1); Sodium 129 mmol/L (135-145); Total Protein 6.6 g/dl (6.3-8.2); eGFR > 60.00
[2025-03-06] MEDS: HEPARIN 5000 UNITS SC ×3 (08:08→23:43)
[2025-03-06] MEDS: THIAMINE INJECTION 200 MG IV ×2 (08:08→21:41)
[2025-03-06] MEDS: VISBIOME 1 CAP PO (08:08)
[2025-03-06] MEDS: CATAPRES 0.1 MG PO ×2 (08:08→21:46)
[2025-03-06] MEDS: FOLVITE 1 MG PO (08:08)
[2025-03-06] MEDS: PROTONIX 20 MG PO (08:09)
--- NOTE | 2025-03-06 09:36 | W.PN.HOSP.TC ---
Today's Communication/Plan
-
cont Abx pending MRI
Assessment / Plan
Assessment / Plan
69yo M with PMHx HTN, GERD, HLD, Hx of barrtes s/p Sx with prforation, HX of L 5th toe ambupatient 2/2 gangrene, Hx of TAVR, PAD s/p aorto-femoral bypass came with L 4th toe wound, found possible OM.
A/P:
#L 4th toe probably acute on chronic OM with cellulitis
XR with chronic osteomyelitis with acute component not excluded radiographically
Tiny curvilinear radiopaque foreign body projects along the plantar medial aspect of the great toe distally
Podiatry consult: MRI pending (discussed foeign body with podiatry - no concern for it to be a contraindication for MRI
ESR/CRP elevated and to be followed
VAnco/Zosyn
BCx NTD
#Hyponatremia
UOsm 295, but on HCTZ - stop
patient reported polyuria
Nephro consult: FR and stop diuretics
No concern for overcorrection
thiamine/folate
#PAD
CT runoff as per vasc Sx: no concern for new or worsening vascular occlusion, blood supply sufficient for healing
hold Xarelto until final plans by podiatry
#Alcohol use, unclear if abuse
2-4 12Oz beer per day
no sign of withdrawal
counseling on cessation
#HLD
#GERD
#Esophageal stenosis s/p stent (now removed) and dilation
#essential HTN
cont home meds
DVT ppx hep
Full code
Patient was explained medical need to stay in the hospital. He verbalized understanding and currently presents with appropriate insight on his medical consition and with capacity to participate in medical decision making and discharge planning
Anticipated Discharge: > 48 hours
Subjective/Interval History
-
Date of Service: March 06, 2025
Objective Data
-
Labs:
Laboratory Results
03/06/25
06:47
WBC 6.6
Hgb 10.6 L
Hct 31.3 L
Plt Count 305
Sodium 129 L
Potassium 4.1
Chloride 97 L
Carbon Dioxide 24
BUN 8 L
Creatinine 0.9
Glucose 103 H
Calcium 8.9
Total Bilirubin 0.5
AST 25
ALT 18
Alkaline Phosphatase 57
Vital Signs:
Vital Signs
Temp Pulse Resp BP Pulse Ox
98.2 F 61 18 125/67 97
03/06/25 07:46 03/06/25 07:46 03/06/25 07:46 03/06/25 07:46 03/06/25 07:46
I&O
03/05/25 03/06/25 03/07/25
06:59 06:59 06:59
Intake Total 1440 / 1440
Balance 1440 / 1440
Review of Systems
-
History Source: Patient
All other systems: Reviewed and negative
Physical Exam
-
General: No Apparent Distress
HEENT: Normocephalic
Respiratory: Clear to Auscultation
Cardiac: Regular Rhythm
Neuro: Awake, Alert, Oriented and AO x 3
Psych: Calm
--- NOTE | 2025-03-06 10:27 | W.PN.NEPH.PH ---
Today's Communication / Plan
-
AM lab
Assessment/Plan
-
69year-old male with past medical history significant for hypertension, hyperlipidemia, peripheral vascular disease, COPD and GERD who presented to [facility] ED for evaluation of left 4th toe wound. He was found to have a sodium of 124 at 4 PM with
repeat of 129.
Patient is on hydrochlorothiazide and drinks about 4+ beers a day. He does not take any acute or chronic NSAIDs.
Renal consult for hyponatremia
Impression
Hyponatremia likely from decreased solute intake and alcohol use on HCTZ
Toe infection rule out osteo
Alcohol use
Hypertension
Plan.
Fluid restrict
Sodium 129
Discontinue hydrochlorothiazide and will discontinue indefinitely with the alcohol
IV antibiotic
Pending MRI rule out osteo
A.m. labs
-
-
Date of Service: March 06, 2025
CC / HPI / ROS
-
Chief Complaint:
Toe infection
History of Present Illness:
Toe infection rule out osteo hyponatremia 124 on admission alcohol use chronic
Review of Systems:
No chest pain or shortness of breath
Labs
-
Labs:
WBC 6.6 10^3/uL (4.8-10.8) 03/06/25 06:47
RBC 3.47 10^6/uL (4.70-6.10) L 03/06/25 06:47
Hgb 10.6 g/dL (13.0-18.0) L 03/06/25 06:47
Hct 31.3 % (39.0-52.0) L 03/06/25 06:47
Plt Count 305 10^3/uL (130-400) 03/06/25 06:47
Sodium 129 mmol/L (135-145) L 03/06/25 06:47
Potassium 4.1 mmol/L (3.5-5.1) 03/06/25 06:47
Chloride 97 mmol/L (98-107) L 03/06/25 06:47
Carbon Dioxide 24 mmol/L (22-30) 03/06/25 06:47
BUN 8 mg/dl (9-20) L 03/06/25 06:47
Creatinine 0.9 mg/dL (0.7-1.3) 03/06/25 06:47
eGFR > 60.00 03/06/25 06:47
Glucose 103 mg/dl (70-99) H 03/06/25 06:47
Calcium 8.9 mg/dl (8.4-10.2) 03/06/25 06:47
Phosphorus 4.1 mg/dl (2.5-4.5) 03/04/25 21:57
Albumin 3.7 g/dl (3.5-5.0) 03/06/25 06:47
Physical Exam
-
Vital Signs:
Vital Signs
Temp Pulse Resp BP Pulse Ox
98.2 F 61 18 125/67 97
03/06/25 07:46 03/06/25 07:46 03/06/25 07:46 03/06/25 07:46 03/06/25 07:46
Respiratory:: Bilateral: CTA
Lung Excursion:: Normal
Abdomen:: Soft
Bowel Sounds:: Normal
Extremity Edema:: None: Bilateral:
--- NOTE | 2025-03-06 14:31 | PHA.VAN.FU ---
Addendum entered and electronically signed by Adeola Abdul [facility] 03/06/25 21:18:
ASSESSMENT:
Received call from nursing that patient's IV line infiltrated during vancomycin infusion.
Vancomycin infusion paused for extended period of time while new access was placed.
Restarting remaining infusion now.
PLAN:
Retime levels
Peak: 03/07 @2100
Trough: 03/08 @0530
Original Note:
Vancomycin Assessment / Plan
- Assessment
Renal Function: Stable
WBC's are: WNL
In the past 24 hrs, patient has been: Afebrile
Concomitant Antimicrobials: piperacillin/tazobactam
- Dosing Plan
Continue: Vanc 1000mg Q12H
- Monitoring Plan
Peak Level: 03/06 21:00
Trough Level: 03/07 05:30
Monitoring Comments: levels to be drawn after 4th maintenance dose
- Follow Up
Pharmacy will continue to follow.
Vancomycin Follow UP
- -
Patient Age: 69
Patient Sex: Male
Vancomycin Day #: 3
Indication: Skin And Soft Tissue
Requesting Provider: Anabella OLSON
Pertinent Antimicrobial Allergies:
consider levels in next few days
Height / Weight:
Height 5 ft 11 in
Actual Weight 76.204 kg
- Vital Signs / Lab Results
Temp Pulse Resp BP Pulse Ox
98.2 F 61 18 125/67 97
03/06/25 07:46 03/06/25 07:46 03/06/25 07:46 03/06/25 07:46 03/06/25 07:46
Lab Results - Hematology
03/04/25 03/05/25 03/06/25
15:20 06:36 06:47
WBC 8.9 6.0 6.6
Lab Results - Chemistry
03/04/25 03/05/25 03/05/25
15:20 06:36 09:54
BUN 9 7 L 8 L
Creatinine 0.7 0.9 0.9
Estimated Creat Clear 105 81 81
Albumin 4.0
03/06/25
06:47
BUN 8 L
Creatinine 0.9
Estimated Creat Clear 81
Albumin 3.7
Lab Results - Urine
03/05/25
21:11
Urine Nitrite Negative
Ur Leukocyte Esterase Negative
Urine WBC 0-2
Ur Squamous Epith Cells 0-2
Microbiology Results
03/04/25 15:20 Blood Culture - Preliminary
Blood/Venous No Growth in 24 hours- Final report to follow
03/04/25 15:20 Blood Culture - Preliminary
Blood/Venous No Growth in 24 hours- Final report to follow
[2025-03-06 15:24] VITALS: BP 129/68
--- NOTE | 2025-03-06 21:00 | PTCARENOTE ---
Patient vancomycin running. Patient stated his 'IV is burning'. Patient's IV appears infiltrated. Vancomycin paused. VAT team notified, at bedside. Line removed. Ice applied to arm, arm elevated on pillow. New line placed. Vancomycin resumed.
Vancomycin paused for 50 minutes total. This RN contacted pharmacy. Peak and trough retimed. DAVONTE Bliss notified. Will continue to monitor.
[2025-03-06 23:00] VITALS: BP 139/76
--- NOTE | 2025-03-06 23:42 | PTCARENOTE ---
L arm IV appears infiltrated but blood return noted, line removed, ice applied and arm elevated on pillow, pt denies pain, primary nurse made aware
[2025-03-07] MEDS: ZOSYN 100 IV ×4 (04:07→22:14)
[2025-03-07] MEDS: TYLENOL 650 MG PO ×2 (04:50→20:11)
[2025-03-07] MEDS: VANCOCIN 200 IV ×2 (06:11→18:11)
[2025-03-07 07:00] VITALS: BP 134/63
[2025-03-07 07:24] LABS: Hematocrit 30.1 % (39.0-52.0); Hemoglobin 9.9 g/dL (13.0-18.0); Mean Corp Hgb Conc. 32.9 g/dL (33.0-37.0); Mean Corpuscular Volume 94.7 fL (80.0-94.0); Nucleated Red Blood Cells % 0 % (-); Platelet Count 281 10^3/uL (130-400); Red Cell Dist. Width 13.7 % (11.5-14.5)
[2025-03-07] MEDS: PROTONIX 20 MG PO (07:45)
[2025-03-07] MEDS: FOLVITE 1 MG PO (07:45)
[2025-03-07] MEDS: HEPARIN 5000 UNITS SC ×3 (07:45→23:51)
[2025-03-07] MEDS: VISBIOME 1 CAP PO (07:45)
[2025-03-07] MEDS: THIAMINE INJECTION 200 MG IV (07:46)
[2025-03-07] MEDS: CATAPRES 0.1 MG PO ×2 (07:46→20:10)
[2025-03-07 07:48] LABS: ALT (SGPT) 16 U/L (0-50); AST (SGOT) 23 U/L (17-59); Albumin 3.4 g/dl (3.5-5.0); Alkaline Phosphatase 49 U/L (38-126); Blood Urea Nitrogen 9 mg/dl (9-20); Calcium 8.5 mg/dl (8.4-10.2); Carbon Dioxide 24 mmol/L (22-30); Chloride 100 mmol/L (98-107); Estimated Creatinine Clearance 73 ml/min; Glucose 89 mg/dl (70-99); Potassium 4.0 mmol/L (3.5-5.1); Sodium 130 mmol/L (135-145); Total Protein 5.9 g/dl (6.3-8.2); eGFR > 60.00
--- NOTE | 2025-03-07 08:04 | PHA.VAN.FU ---
Vancomycin Assessment / Plan
- Assessment
Renal Function: Stable
WBC's are: WNL
In the past 24 hrs, patient has been: Afebrile
Concomitant Antimicrobials: piperacillin/tazobactam
- Dosing Plan
Continue: Vanc 1000mg Q12H
- Monitoring Plan
Peak Level: 03/07 21:00
Trough Level: 03/08 05:30
Monitoring Comments: levels re-timed to be after 6th maintenance dose due to infiltratation
- Follow Up
Pharmacy will continue to follow.
Vancomycin Follow UP
- -
Patient Age: 69
Patient Sex: Male
Vancomycin Day #: 4
Indication: Skin And Soft Tissue
Requesting Provider: Anabella OLSON
Pertinent Antimicrobial Allergies:
consider levels in next few days
Height / Weight:
Height 5 ft 11 in
Actual Weight 76.204 kg
- Vital Signs / Lab Results
Temp Pulse Resp BP Pulse Ox
97.7 F 58 16 134/68 100
03/07/25 07:00 03/07/25 07:46 03/07/25 07:00 03/07/25 07:46 03/07/25 07:00
Lab Results - Hematology
03/04/25 03/05/25 03/06/25
15:20 06:36 06:47
WBC 8.9 6.0 6.6
03/07/25
06:39
WBC 7.2
Lab Results - Chemistry
03/04/25 03/05/25 03/05/25
15:20 06:36 09:54
BUN 9 7 L 8 L
Creatinine 0.7 0.9 0.9
Estimated Creat Clear 105 81 81
Albumin 4.0
03/06/25 03/07/25
06:47 06:39
BUN 8 L 9
Creatinine 0.9 1.0
Estimated Creat Clear 81 73
Albumin 3.7 3.4 L
Microbiology Results
03/04/25 15:20 Blood Culture - Preliminary
Blood/Venous No Growth in 48 hours- Final report to follow
03/04/25 15:20 Blood Culture - Preliminary
Blood/Venous No Growth in 48 hours- Final report to follow
Therapeutic Drug Monitoring
Vancomycin Peak Cancelled 03/06/25 21:00
--- NOTE | 2025-03-07 10:54 | W.PN.HOSP.TC ---
Today's Communication/Plan
-
cont Abx pending further podiatry mgmt. Discussed in details with patient spending most of the time explaining pathophysiology of the infection
Assessment / Plan
Assessment / Plan
69yo M with PMHx HTN, GERD, HLD, Hx of barrtes s/p Sx with prforation, HX of L 5th toe amputation 2/2 gangrene, Hx of TAVR, PAD s/p aorto-femoral bypass came with L 4th toe wound, found acute OM.
A/P:
#L 4th toe probably acute OM with cellulitis
XR with chronic osteomyelitis with acute component not excluded radiographically
Tiny curvilinear radiopaque foreign body projects along the plantar medial aspect of the great toe distally
Podiatry consult: pending Sx mgmt
MRI showed: Acute osteomyelitis of the fourth middle phalanx. Bone marrow edema in the fourth distal phalanx and fourth proximal phalanx is also suspicious for the early changes of acute osteomyelitis
ESR/CRP elevated and to be followed
VAnco/Zosyn
BCx NTD
#Hyponatremia
UOsm 295, but on HCTZ - stop
patient reported polyuria
Nephro consult: FR and stop diuretics
No concern for overcorrection
thiamine/folate
#PAD
CT runoff as per vasc Sx: no concern for new or worsening vascular occlusion, blood supply sufficient for healing
hold Xarelto until final plans by podiatry
#Alcohol use, unclear if abuse
2-4 12Oz beer per day
no sign of withdrawal
counseling on cessation
#HLD
#GERD
#Esophageal stenosis s/p stent (now removed) and dilation
#essential HTN
cont home meds
DVT ppx hep
Full code
I have spent AT LEAST 55MIN REVIEWING CHART, TEST RESULTS, COMMUNICATION WITH CONSULTANTS AND PROVIDING DIRECT PATIENT CARE
Anticipated Discharge: > 48 hours
Subjective/Interval History
-
Date of Service: March 07, 2025
Objective Data
-
Labs:
Laboratory Results
03/07/25
06:39
WBC 7.2
Hgb 9.9 L
Hct 30.1 L
Plt Count 281
Sodium 130 L
Potassium 4.0
Chloride 100
Carbon Dioxide 24
BUN 9
Creatinine 1.0
Glucose 89
Calcium 8.5
Total Bilirubin 0.3
AST 23
ALT 16
Alkaline Phosphatase 49
Vital Signs:
Vital Signs
Temp Pulse Resp BP Pulse Ox
97.7 F 58 16 134/68 100
03/07/25 07:00 03/07/25 07:46 03/07/25 07:00 03/07/25 07:46 03/07/25 07:00
I&O
03/06/25 03/07/25 03/08/25
06:59 06:59 06:59
Intake Total 1060 / 1060 960 / 960
Balance 1060 / 1060 960 / 960
Review of Systems
-
History Source: Patient
All other systems: Reviewed and negative
Physical Exam
-
General: No Apparent Distress
Cardiac: Regular Rhythm
GI: Soft, Nontender and Nondistended
Neuro: Awake, Alert, Oriented and AO x 3
Psych: Calm
[2025-03-07 15:00] VITALS: BP 156/73
--- NOTE | 2025-03-07 15:05 | W.PN.UPDATE ---
Update Note
Progress Note Update
Renal will sign off please call if needed. No follow-up needed
--- NOTE | 2025-03-07 15:26 | W.PN.UPDATE ---
Update Note
Progress Note Update
69M presents with 4th toe wound with acute OM and cellulitis resolving on abx.
- plan for OR tomorrow, left 4th toe amputation
-- [facility]
-- Consent signed and in chart
- MRI, acute OM 4th middle phalanx
- appreciate vascular recommendations
- conitnue IV abx
- LLE PWB to heel
- LWC rendered today betadine paint dsd
[2025-03-07] MEDS: VITAMIN B1 100 MG PO (20:10)
[2025-03-07 23:25] VITALS: BP 147/82
[2025-03-08] VITALS (8 sets, daily range): BP systolic 102–176; BP diastolic 62–79
[2025-03-08] MEDS: ZOSYN 100 IV ×4 (04:10→21:37)
[2025-03-08 06:06] LABS: Hematocrit 31.4 % (39.0-52.0); Hemoglobin 10.4 g/dL (13.0-18.0); Mean Corp Hgb Conc. 33.1 g/dL (33.0-37.0); Mean Corpuscular Volume 94.9 fL (80.0-94.0); Platelet Count 254 10^3/uL (130-400); Red Cell Dist. Width 13.6 % (11.5-14.5)
[2025-03-08] MEDS: VANCOCIN 200 IV ×2 (06:09→17:13)
[2025-03-08 06:28] LABS: Blood Urea Nitrogen 8 mg/dl (9-20); Calcium 8.7 mg/dl (8.4-10.2); Carbon Dioxide 23 mmol/L (22-30); Chloride 104 mmol/L (98-107); Estimated Creatinine Clearance 73 ml/min; Glucose 88 mg/dl (70-99); Potassium 4.1 mmol/L (3.5-5.1); Sodium 134 mmol/L (135-145); eGFR > 60.00
[2025-03-08] MEDS: HEPARIN 5000 UNITS SC ×3 (08:25→23:02)
[2025-03-08] MEDS: VITAMIN B1 100 MG PO ×2 (08:25→20:14)
[2025-03-08] MEDS: FOLVITE 1 MG PO (08:26)
[2025-03-08] MEDS: VISBIOME 1 CAP PO (08:26)
[2025-03-08] MEDS: PROTONIX 20 MG PO (08:26)
[2025-03-08] MEDS: CATAPRES 0.1 MG PO ×2 (08:26→20:16)
[2025-03-08] MEDS: TYLENOL 650 MG PO ×3 (08:35→21:37)
--- NOTE | 2025-03-08 09:40 | PHA.VAN.FU ---
Vancomycin Assessment / Plan
- Assessment
Renal Function: Stable
WBC's are: Stable
In the past 24 hrs, patient has been: Afebrile
Concomitant Antimicrobials: Zosyn 4.5 gram IV q6h
- Assessment - Therapeutic Drug Monitoring
Extrapolated Cmax (mcg/mL): 25.6
Peak level was drawn: Appropriately
Extrapolated Cmin (mcg/mL): 14.3
Trough Drawn: Appropriately
Levels were drawn: At steady state
Calculated AUC (mcg*h/mL): 466
Calculated ke: 0.053
Calculated half life (H): 13
Calculated Vd (L): 80.53
Calculated Vanc CL (ml/min): 71.47
- Dosing Plan
Continue: Vancomycin 1 gram IV q12h
- Monitoring Plan
No level(s) ordered at this time: Consider weekly monitoring unless clinical status/renal function changes
- Follow Up
Pharmacy will continue to follow.
Vancomycin Follow UP
- -
Patient Age: 69
Patient Sex: Male
Vancomycin Day #: 5
Indication: Skin And Soft Tissue
Requesting Provider: Anabella OLSON
Pertinent Antimicrobial Allergies:
consider levels in next few days
Height / Weight:
Height 5 ft 11 in
Actual Weight 76.204 kg
- Vital Signs / Lab Results
Temp Pulse Resp BP Pulse Ox
98.1 F 59 16 124/78 100
03/08/25 08:02 03/08/25 08:02 03/08/25 08:02 03/08/25 08:02 03/08/25 08:02
Lab Results - Hematology
03/06/25 03/07/25 03/08/25
06:47 06:39 05:52
WBC 6.6 7.2 5.4
Lab Results - Chemistry
03/05/25 03/06/25 03/07/25
09:54 06:47 06:39
BUN 8 L 8 L 9
Creatinine 0.9 0.9 1.0
Estimated Creat Clear 81 81 73
Albumin 4.0 3.7 3.4 L
03/08/25
05:52
BUN 8 L
Creatinine 1.0
Estimated Creat Clear 73
Albumin
Microbiology Results
03/04/25 15:20 Blood Culture - Preliminary
Blood/Venous No Growth in 72 hours- Final report to follow
03/04/25 15:20 Blood Culture - Preliminary
Blood/Venous No Growth in 72 hours- Final report to follow
Therapeutic Drug Monitoring
Vancomycin Peak 22.8 ug/ml (18-26) 03/07/25 21:22
Vancomycin Trough 14.5 ug/ml (5-20) 03/08/25 05:52
--- NOTE | 2025-03-08 11:39 | CM ---
Patient seen at bedside with Gosia
OR today-left 4th toe amputation
will need PT post-op
patient would like to return home with [facility]N
has had [facility] in past
PLAN: OR today, CM to follow for discharge planning/needs
--- NOTE | 2025-03-08 13:00 | W.PN.HOSP.TC ---
Today's Communication/Plan
-
OR today
abx
Assessment / Plan
Assessment / Plan
69yo M with PMHx HTN, GERD, HLD, Hx of barrtes s/p Sx with prforation, HX of L 5th toe amputation 2/2 gangrene, Hx of TAVR, PAD s/p aorto-femoral bypass came with L 4th toe wound, found acute OM.
A/P:
#L 4th toe probably acute OM with cellulitis
XR with chronic osteomyelitis with acute component not excluded radiographically
Tiny curvilinear radiopaque foreign body projects along the plantar medial aspect of the great toe distally
Podiatry consult: pending Sx mgmt�going to the OR today
MRI showed: Acute osteomyelitis of the fourth middle phalanx. Bone marrow edema in the fourth distal phalanx and fourth proximal phalanx is also suspicious for the early changes of acute osteomyelitis
ESR/CRP elevated and to be followed
VAnco/Zosyn
BCx NTD
#Hyponatremia
UOsm 295, but on HCTZ - stop
patient reported polyuria
Nephro consult: FR and stop diuretics
No concern for overcorrection
thiamine/folate
improving
#PAD
CT runoff as per vasc Sx: no concern for new or worsening vascular occlusion, blood supply sufficient for healing
hold Xarelto until final plans by podiatry
#Alcohol use, unclear if abuse
2-4 12Oz beer per day
no sign of withdrawal
counseling on cessation
#HLD
#GERD
#Esophageal stenosis s/p stent (now removed) and dilation
#essential HTN
cont home meds
DVT ppx hep
Full code
Anticipated Discharge: > 48 hours
Subjective/Interval History
-
Date of Service: March 08, 2025
No acute events overnight
Objective Data
-
Labs:
Laboratory Results
10/20/25
05:52
WBC 5.4
Hgb 10.4 L
Hct 31.4 L
Plt Count 254
Sodium 134 L
Potassium 4.1
Chloride 104
Carbon Dioxide 23
BUN 8 L
Creatinine 1.0
Glucose 88
Calcium 8.7
Vital Signs:
Vital Signs
Temp Pulse Resp BP Pulse Ox
98.1 F 59 16 124/78 100
03/08/25 08:02 03/08/25 08:02 03/08/25 08:02 03/08/25 08:02 03/08/25 08:02
I&O
03/07/25 03/08/25 03/09/25
06:59 06:59 06:59
Intake Total 0 / 1060 1859
Balance 1060 / 1060 1859
Review of Systems
-
History Source: Patient
All other systems: Reviewed and negative
Physical Exam
-
General: No Apparent Distress
Cardiac: Regular Rhythm
GI: Soft, Nontender and Nondistended
Neuro: Awake, Alert, Oriented and AO x 3
Psych: Calm
Data Reviewed
-
Labs: Labs Reviewed by me
--- NOTE | 2025-03-08 13:13 | W.PN.UPDATE ---
Update Note
Progress Note Update
69M s/p left 4th toe3 amputation, closed
- NWB LLE 24hrs, then may transition to PWB L heel in Orthopedic wedge shoe
- elevate LLE 2-3 pillows
- Dressings remain C/D/I until seen in office
- can transition to po abx
- cultures x2, path x1
- will reassess on AM rounds
--- NOTE | 2025-03-08 14:22 | VNURNOTE ---
Home Health Liaison met with patient and spouse at bedside to discuss [facility] nurse/therapy, visits, schedule and homebound status. Patient is agreeable and understands that visits at home will be 2-3 x per week to assess and teach medical
management.
Patient is aware that [facility] will contact them for start of care in 1-2 days after discharge from .
[facility] referral completed in [facility].
[2025-03-09] MEDS: ZOSYN 100 IV ×2 (04:13→09:53)
[2025-03-09] MEDS: VANCOCIN 200 IV (06:09)
[2025-03-09] MEDS: TYLENOL 650 MG PO (06:20)
[2025-03-09 07:38] VITALS: BP 141/83
[2025-03-09] MEDS: FOLVITE 1 MG PO (08:17)
[2025-03-09] MEDS: CATAPRES 0.1 MG PO (08:17)
[2025-03-09] MEDS: VITAMIN B1 100 MG PO (08:17)
[2025-03-09] MEDS: VISBIOME 1 CAP PO (08:17)
[2025-03-09] MEDS: HEPARIN 5000 UNITS SC (08:17)
--- NOTE | 2025-03-09 08:56 | PHA.VAN.FU ---
Vancomycin Assessment / Plan
- Assessment
Renal Function: No New Labs Today
WBC's are: WNL
In the past 24 hrs, patient has been: Afebrile
Concomitant Antimicrobials: piperacillin/tazobactam
- Dosing Plan
Continue: Vanc 1000mg Q12H
- Monitoring Plan
Peak Level: 03/09 21:00
Trough Level: 03/10 05:30
Monitoring Comments: levels to be drawn after 10th maintenance dose
repeat levels given half-life > dosing interval to assess if patient having further accumulation
- Follow Up
Pharmacy will continue to follow.
Vancomycin Follow UP
- -
Patient Age: 69
Patient Sex: Male
Vancomycin Day #: 6
Indication: Skin And Soft Tissue
Requesting Provider: Anabella OLSON
Pertinent Antimicrobial Allergies:
consider levels in next few days
Height / Weight:
Height 5 ft 11 in
Actual Weight 76.204 kg
- Vital Signs / Lab Results
Temp Pulse Resp BP Pulse Ox
97.6 F 68 17 141/83 98
03/09/25 07:38 03/09/25 07:38 03/09/25 07:38 03/09/25 07:38 03/09/25 07:38
Lab Results - Hematology
03/07/25 03/08/25
06:39 05:52
WBC 7.2 5.4
Lab Results - Chemistry
03/07/25 03/08/25
06:39 05:52
BUN 9 8 L
Creatinine 1.0 1.0
Estimated Creat Clear 73 73
Albumin 3.4 L
Microbiology Results
03/04/25 15:20 Blood Culture - Preliminary
Blood/Venous No Growth in 4 days- Final report to follow
03/04/25 15:20 Blood Culture - Preliminary
Blood/Venous No Growth in 4 days- Final report to follow
03/08/25 12:49 Gram Stain - Preliminary
Toe
Therapeutic Drug Monitoring
Vancomycin Peak 22.8 ug/ml (18-26) 03/07/25 21:22
Vancomycin Trough 14.5 ug/ml (5-20) 03/08/25 05:52
--- NOTE | 2025-03-09 09:11 | W.PN.UPDATE ---
Update Note
Progress Note Update
69M s/p left 4th toe3 amputation, closed. doing well this AM, no pain, cft wnl, sensation at baseline, motor fucntion intact, no calf pain
- PWB L heel in Orthopedic wedge shoe
- elevate LLE 2-3 pillows
- Dressings remain C/D/I until seen in office
- can transition to po abx
- cultures x2, path x1
- may folklow up in office
[2025-03-09] MEDS: PROTONIX 20 MG PO (09:53)
[2025-03-09 11:50] VITALS: BP 136/82; PULSE 70
--- NOTE | 2025-03-09 12:23 | W.PN.HOSP.TC ---
Addendum entered and electronically signed by Gallo Roberts MD 03/09/25 15:39:
[id number]
Original Note:
Today's Communication/Plan
-
abx - 10 day course
f/u path, cultures outpt with podiatry
PWB L heel in Orthopedic wedge shoe
elevate LLE 2-3 pillows
Dressings remain C/D/I until seen in office
f/u cbc and cmp outpatient
Assessment / Plan
Assessment / Plan
69yo M with PMHx HTN, GERD, HLD, Hx of barrtes s/p Sx with prforation, HX of L 5th toe amputation 2/2 gangrene, Hx of TAVR, PAD s/p aorto-femoral bypass came with L 4th toe wound, found acute OM.
A/P:
#L 4th toe probably acute OM with cellulitis
XR with chronic osteomyelitis with acute component not excluded radiographically
Tiny curvilinear radiopaque foreign body projects along the plantar medial aspect of the great toe distally
Podiatry consult: pending Sx mgmt�going to the OR today
MRI showed: Acute osteomyelitis of the fourth middle phalanx. Bone marrow edema in the fourth distal phalanx and fourth proximal phalanx is also suspicious for the early changes of acute osteomyelitis
ESR/CRP elevated and to be followed
VAnco/Zosyn - switch to Augmentin 1- days; as per podiatry - with high confidence that removal of infected bone completed; F/u path and cultures outpatient
BCx NTD
#Hyponatremia
UOsm 295, but on HCTZ - stop
patient reported polyuria
Nephro consult: FR and stop diuretics
No concern for overcorrection
thiamine/folate
improving
-F/u outpt
#PAD
CT runoff as per vasc Sx: no concern for new or worsening vascular occlusion, blood supply sufficient for healing
hold Xarelto until final plans by podiatry
#Alcohol use, unclear if abuse
2-4 12Oz beer per day
no sign of withdrawal
counseling on cessation
#Calcified plaque near the origin of each renal artery. Degree of stenosis is difficult to estimate due to heavy calcification. Consider renal arterial ultrasound if renal arterial stenosis is a clinical concern - at this time it is not - BPS under
control
#HLD
#GERD
#Esophageal stenosis s/p stent (now removed) and dilation
#essential HTN
cont home meds
DVT ppx hep
Full code
More than 30 minutes spent in discharge including
Final examination of the patient
Summarizing hospital stay
Instructions for continuing care to all relevant caregivers
Preparation of discharge records, prescriptions, and referral forms
Total time spent (in minutes): 36
Anticipated Discharge: Today
Subjective/Interval History
-
Date of Service: March 09, 2025
No acute events overnight. Successful amputation, closed yesterday
Objective Data
-
Labs:
Laboratory Results
03/09/25
11:53
WBC Pending
Hgb Pending
Hct Pending
Plt Count Pending
Sodium Pending
Potassium Pending
Chloride Pending
Carbon Dioxide Pending
BUN Pending
Creatinine Pending
Glucose Pending
Calcium Pending
Total Bilirubin Pending
AST Pending
ALT Pending
Alkaline Phosphatase Pending
Vital Signs:
Vital Signs
Temp Pulse Resp BP Pulse Ox
97.6 F 68 17 141/83 98
03/09/25 07:38 03/09/25 07:38 03/09/25 07:38 03/09/25 07:38 03/09/25 07:38
I&O
03/08/25 03/09/25 03/10/25
06:59 06:59 06:59
Intake Total 0 / 1860 75 / 75
Balance 1859
Review of Systems
-
All other systems: Not reviewed unless documented
Data Reviewed
-
Ultrasound: Report Reviewed by me
MRI: Report Reviewed by me
Labs: Labs Reviewed by me
[2025-03-09 12:26] LABS: Hematocrit 34.7 % (39.0-52.0); Hemoglobin 11.7 g/dL (13.0-18.0); Mean Corp Hgb Conc. 33.7 g/dL (33.0-37.0); Mean Corpuscular Volume 95.3 fL (80.0-94.0); Platelet Count 385 10^3/uL (130-400); Red Cell Dist. Width 13.3 % (11.5-14.5)
--- NOTE | 2025-03-09 12:29 | W.DS.TRANS ---
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
-
Discharge Instructions:
Discharge Diagnosis/Procedures #Hyponatremia
#L 4th toe probably acute OM with cellulitis s/p
amputation
Diet Low Cholesterol,Low Fat
Blood Work cbc and cmp in 1 week with pcp
Instructions:
Stand-Alone Forms:
Changes to Home Medications: Yes
Discharge Medications:
DC Medications w/original date entered in [facility]
clonidine HCl 0.1 mg tablet 0.1 mg PO BID Heart Disease/Condition 08/09/17
lansoprazole 15 mg capsule,delayed release 15 mg PO DAILY gerd 11/05/17
red yeast rice 600 mg tablet 600 mg PO DAILY Supplement ##0 11/05/17
Lactobacillus acidophilus and rhamnosus 15 billion cell capsule (Probiotic) 1 tab PO DAILY Supplement 12/06/20
rivaroxaban 15 mg tablet (Xarelto) 15 mg PO DAILY Blood Clot Prevention/Tx 12/06/20
ascorbic acid (vitamin C) 1,000 mg tablet (Vitamin C) 1,000 mg PO DAILY Supplement 03/09/24
acetaminophen 650 mg tablet,extended release 1,300 mg PO BID Pain 03/04/25
pyridoxine (vitamin B6) 100 mg tablet (Vitamin B-6) 100 mg PO DAILY Supplement 03/04/25
vitamin E 268 mg (400 unit) capsule 268 mg PO DAILY Supplement 03/04/25
zinc acetate 25 mg (zinc) capsule 25 mg PO DAILY Supplement 03/04/25
amoxicillin 875 mg-potassium clavulanate 125 mg tablet 1 tab PO Q12H 10 days #20 tabs 03/09/25
Home Medication Changes
amoxicillin 875 mg-potassium clavulanate 125 mg tablet 1 tab PO Q12H 10 days #20 tabs 03/09/25
Pending Results: No
[2025-03-09 12:32] VITALS: BP 136/82; PULSE 70
[2025-03-09 12:40] LABS: ALT (SGPT) 19 U/L (0-50); AST (SGOT) 28 U/L (17-59); Albumin 4.2 g/dl (3.5-5.0); Alkaline Phosphatase 51 U/L (38-126); Blood Urea Nitrogen 13 mg/dl (9-20); Calcium 9.4 mg/dl (8.4-10.2); Carbon Dioxide 24 mmol/L (22-30); Chloride 99 mmol/L (98-107); Estimated Creatinine Clearance 73 ml/min; Glucose 100 mg/dl (70-99); Potassium 3.7 mmol/L (3.5-5.1); Sodium 129 mmol/L (135-145); Total Protein 7.4 g/dl (6.3-8.2); eGFR > 60.00
--- NOTE | 2025-03-09 12:47 | CM ---
Patient seen at bedside
[facility]N discussed - options reviewed prefers [facility]
Referral in [facility]
discharge today
IMM explained & signed. In chart
PLAN: Home with [facility]
to transport
[2025-03-09 14:30] VITALS: BP 132/81
--- NOTE | 2025-03-09 22:23 | OR.RPT ---
Operative Report
Operative Report
Operative Report
Patient Name:�Emeterio Quiroga
Medical Record Number:�[id number]
Date of Surgery:�03/08/2025
Surgeon:�Doni Dc DPM
Assistants:�Doni Estrada DPM
Preoperative Diagnosis:
Left fourth toe osteomyelitis
Postoperative Diagnosis:
Left fourth toe osteomyelitis
Procedure Performed:
Left fourth toe amputation at the metatarsophalangeal joint (MTPJ) CPT 74447
Anesthesia:
MAC with 10ccs of 1% lidocaine plain
Estimated Blood Loss:
Minimal (<10 mL)
Specimens:
Left fourth toe sent for surgical pathology and culture
Complications:
None
Indications for Surgery:
The patient presented with chronic nonhealing ulceration and MRI evidence of osteomyelitis involving the left fourth toe. He had a previous 5th toe amputation. Given the presence of bone infection unresponsive to conservative management, surgical
amputation at the metatarsophalangeal joint was indicated to eradicate infection and promote healing. Risks, benefits, and alternatives were discussed with the patient, and informed consent was obtained.
Description of Procedure:
The patient was brought to the operating room and placed supine on the operating table. Following induction of anesthesia, the left lower extremity was prepped and draped in the usual sterile manner.
Attention was directed to the left fourth toe. A fishmouth-type incision was planned at the level of the metatarsophalangeal joint, incorporating both dorsal and plantar flaps. The incision was carried down through skin and subcutaneous tissues to
the level of the joint capsule using a #15 blade. The soft tissues were reflected to fully expose the metatarsophalangeal joint.
Dissection was carried medially and laterally to identify and isolate the fourth toe. The joint capsule was incised, and the toe was disarticulated cleanly at the level of the metatarsophalangeal joint. The specimen was removed and passed off the
field for pathology. The metatarsal head was inspected and found to be firm and viable without evidence of infection. Nonviable and fibrotic soft tissue was debrided as necessary.
The surgical field was irrigated copiously with sterile saline. Hemostasis was achieved using electrocautery. The wound was inspected and found to have excellent bleeding at the skin edges, indicating adequate perfusion.
The deep tissues were reapproximated using 3-0 Vicryl in an interrupted fashion. The skin was closed primarily with 3-0 Prolene in a simple interrupted manner.
A sterile dressing was applied consisting of Adaptic, gauze, Kerlix, and a light compressive wrap. The tourniquet was deflated, and prompt capillary refill was noted in the remaining digits. The patient tolerated the procedure and anesthesia well.
The patient was transferred to the post-anesthesia care unit (PACU) in stable condition with intact vascular status of the left foot. He will continue to receive antibiotics per culture data and he will be heel weight-bearing as tolerated.
== END 2025-03-09 14:54 | disposition home health service (06) | DRG 504 ==
LOC: 3 WEST ACU 17:46
PROVIDERS: Internal Medicine; Nurse Practitioner Family; Student in an Organized Health Care Education/Training Program; ADMITTING PHYSICIAN Hospitalist; ATTENDING PHYSICIAN Internal Medicine; CONSULT PHYSICIAN Internal Medicine Nephrology; EMERGENCY PHYSICIAN Emergency Medicine; FAMILY PHYSICIAN Family Medicine; OTHER PHYSICIAN Student in an Organized Health Care Education/Training Program; OTHER PHYSICIAN Surgery Vascular Surgery
PROC: 0Y6W0Z0 Detachment at Left 4th Toe, Complete, Open Approach (ICD-10-PCS; 2025-03-08)
DX: M86.172 Other acute osteomyelitis, left ankle and foot (principal); E87.1 Hypo-osmolality and hyponatremia; L97.526 Non-pressure chronic ulcer of other part of left foot with bone involvement without evidence of necrosis; L03.032 Cellulitis of left toe; I73.9 Peripheral vascular disease, unspecified; J44.9 Chronic obstructive pulmonary disease, unspecified; K21.9 Gastro-esophageal reflux disease without esophagitis; I10 Essential (primary) hypertension; F17.290 Nicotine dependence, other tobacco product, uncomplicated; Z88.7 Allergy status to serum and vaccine; Z79.01 Long term (current) use of anticoagulants; E78.00 Pure hypercholesterolemia, unspecified; F10.20 Alcohol dependence, uncomplicated; M79.7 Fibromyalgia; G62.9 Polyneuropathy, unspecified; Z79.899 Other long term (current) drug therapy
CPT/HCPCS: 70030; 73630; 73718; 75635; 80048; 80053; 80076; 80202; 80306; 81003; 81015; 82010; 82077; 82105; 82977; 83735; 83930; 83935; 84100; 84300; 85025; 85027; 85610; 85652; 85730; 86140; 87040; 87070; 87075; 87077; 87147; 87205; 88305; 88311; 93922; 96365; 96375; 97162; 97166; 99204; 99285; Q9967